=== PATIENT | female | born 1980 | race Caucasian/White ===

== ENCOUNTER 2016-09-11 17:32 | Emergency (ER) | payer BC ==
[2016-09-11 17:51] VITALS: BP 119/70
--- NOTE | 2016-09-11 18:04 | EDM.PDOC ---
ED HPI GENERAL MEDICAL PROBLEM - General Chief Complaint: ENT Problem Stated Complaint: EAR INFECTION Time Seen by Provider: 09/11/16 17:33 - History of Present Illness INITIAL COMMENTS - FREE TEXT/NARRATIVE: HISTORY AND PHYSICAL: History of present illness: The patient is a 35 or female with a history of cough nonproductive of phlegm for one week some nasal drainage and sore throat all of which have improved but now she has bilateral ear pain left greater than right the last 2 days with episodic vomiting over the last 2-3 days. She is tolerating by mouth she states she only episodically vomiting she has no diarrhea or abdominal pain. She has no chest pain or shortness of breath. She has no headache or current sinus drainage and she is mostly concerned about bilateral ear pain. 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 Patient denies any neck pain swelling or headache. Patient did not get her influenza shot this year but she does follow with Dr. Warren at [facility]. The patient states she's not using protection and is unsure of last period and would like a test Review of systems: As per history of present illness and below otherwise all systems reviewed and negative. Past medical history: As per history of present illness and as reviewed below otherwise noncontributory. Surgical history: As per history of present illness and as reviewed below otherwise noncontributory. Social history: No reported history of drug or alcohol abuse. Family history: As per history of present illness and as reviewed below otherwise noncontributory. Physical exam: General: Well-developed well-nourished female who is overweight nontoxic and speaking clearly and easily in the ED. She is not breathless or should nasal quality to voice. HEENT: Atraumatic, normocephalic, pupils reactive, negative for conjunctival pallor or scleral icterus, mucous membranes moist, throat clear, neck supple, nontender, trachea midline. There is no cervical adenopathy or nuchal rigidity. The right TM has a chronic appearing perforation in the superior aspect and there is no gross drainage or external canal swelling and the TM is not reddened. There is no mastoid tenderness bilaterally. The left TM is beefy-red in appearance and bulging but there is no fluid or debris in external canal nor is there any gross edema. Lungs: Clear to auscultation, breath sounds equal bilaterally, chest nontender. Heart: S1S2, regular rhythm and slightly tachycardic rate of my evaluation no overt murmurs Abdomen: Soft, nondistended, nontender. NABS. Genitourinary: Deferred. Rectal: Deferred. Extremities: Atraumatic, negative for cords or calf pain. Neurovascular unremarkable. Neuro: Awake, alert, oriented. Cranial nerves II through XII unremarkable. Cerebellum unremarkable. Motor and sensory unremarkable throughout. Exam nonfocal. 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: Musculoskeletal 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: None Neurological 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: None Psychiatric 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: Anxiety, Depression Endocrine/Metabolic 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: Obesity/BMI 30+ Hematologic 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: None Immunologic 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: None Oncologic (Cancer) 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: None Dermatologic 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: None - Infectious Disease History Infectious Disease 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: None - Past Surgical History Head Surgeries/Procedures: Reports: None HEENT Surgical 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: Adenoidectomy, Tonsillectomy Cardiovascular Surgical 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: None Respiratory Surgical 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: None GI Surgical 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: None Female Surgical 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: None Endocrine Surgical 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: None Neurological Surgical 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: None Musculoskeletal Surgical 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: None Oncologic Surgical 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: None Social & Family History - Family History Family Medical History: Noncontributory - Tobacco Use Smoking Status *Q: Current Some Day Smoker Years of Tobacco use: 15 Packs/Tins Daily: 0.5 Used Tobacco, but Quit: Yes - Recreational Drug Use Recreational Drug Use: No Drug Use in Last 12 Months: No ED ROS GENERAL - Review of Systems Review Of Systems: ROS reveals no pertinent complaints other than HPI. ED EXAM, GENERAL - Physical Exam Exam: See Below (See dictation) Course - Vital Signs Last Recorded V/S: Last Vital Signs Temp 36.8 C 09/11/16 17:48 Pulse 113 H 09/11/16 17:48 Resp 16 09/11/16 17:48 BP 119/70 09/11/16 17:48 Pulse Ox 96 09/11/16 17:48 - Orders/Labs/Meds Orders: Active Orders 24 hr Category Date Time Status HCG QUALITATIVE,URINE [URCHEM] Stat Lab 09/11/16 18:05 Ordered Departure - Departure Time of Disposition: 18:21 Disposition: Home, Self-Care 01 Condition: good Clinical Impression: Otitis media Qualifiers: Otitis media type: unspecified Laterality: left Chronicity: unspecified Qualified Code(s): H66.92 - Otitis media, unspecified, left ear Upper respiratory tract infection Qualifiers: URI type: unspecified viral URI Qualified Code(s): J06.9 - Acute upper respiratory infection, unspecified Referrals: Jatin Warren MD [Primary Care Provider] - Forms: ED Department Discharge Additional Instructions: The following information is given to patients seen in the emergency department who are being discharged to home. This information is to outline your options for follow-up care. We provide all patients seen in our emergency department with a follow-up referral. The need for follow-up, as well as the timing and circumstances, are variable depending upon the specifics of your emergency department visit. If you don't have a primary care physician on staff, we will provide you with a referral. We always advise you to contact your personal physician following an emergency department visit to inform them of the circumstance of the visit and for follow-up with them and/or the need for any referrals to a consulting specialist. The emergency department will also refer you to a specialist when appropriate. This referral assures that you have the opportunity for followup care with a specialist. All of these measure are taken in an effort to provide you with optimal care, which includes your followup. Under all circumstances we always encourage you to contact your private physician who remains a resource for coordinating your care. When calling for followup care, please make the office aware that this follow-up is from your recent emergency room visit. If for any reason you are refused follow-up, please contact the [facility] emergency department at and ask to speak to the emergency department charge nurse. [facility] Primary care- Internal Medicine and Family [address] [id number] [address] Warren at [facility] or one of our providers for reevaluation and further care. Please take antibiotics as directed and return to ER as needed as discussed. Please take [id number] Tylenol/ibuprofen for pain and stronger pain medication at sleep times if needed - My Orders Last 24 Hours: My Active Orders 09/11/16 18:05 HCG QUALITATIVE,URINE [URCHEM] Stat - Assessment/Plan Last 24 Hours: My Active Orders 09/11/16 18:05 HCG QUALITATIVE,URINE [URCHEM] Stat
== END 2016-09-11 18:33 | disposition home or self-care (01) ==
LOC: MW.ED 17:32
DX: J06.9 Acute upper respiratory infection, unspecified (principal); H66.92 Otitis media, unspecified, left ear; F41.8 Other specified anxiety disorders; E66.9 Obesity, unspecified; F17.210 Nicotine dependence, cigarettes, uncomplicated; Z68.30 Body mass index [BMI] 30.0-30.9, adult; Z79.899 Other long term (current) drug therapy; Z88.0 Allergy status to penicillin; Z98.890 Other specified postprocedural states
CPT/HCPCS: 81025; 99283

== ENCOUNTER 2017-04-18 20:24 | Inpatient (IN) | payer BC ==
[2017-04-18] MEDS ORDERED: Sodium Chloride 0.9% 2.5 ML Syringe FLUSH PRN (20:39)
[2017-04-18] MEDS ORDERED: Lidocaine 1% 50 ML MDV INJECT PRN (20:39)
[2017-04-18] MEDS ORDERED: Carboprost Tromethamine 250 MCG/1 ML Amp IM PRN (20:39)
[2017-04-18] MEDS ORDERED: Misoprostol 200 MCG Tab PO PRN (20:39)
[2017-04-18] MEDS ORDERED: Nalbuphine 10 MG/1 ML Vial IVPUSH PRN (20:39)
[2017-04-18] MEDS ORDERED: Methylergonovine 0.2 MG/1 ML Amp IM PRN ×2 (20:39→21:24)
[2017-04-18] MEDS ORDERED: Butorphanol 1 MG/ML SDV IVPUSH PRN (20:39)
[2017-04-18] MEDS ORDERED: Sodium Chloride 0.9% 10 ML Syringe FLUSH PRN (20:39)
[2017-04-18] MEDS ORDERED: Water For Irrigation,Sterile 1,000 ML Container IRR PRN (20:39)
[2017-04-18] MEDS ORDERED: Oxytocin/0.9 % Sodium Chloride 30 UNIT/500 ML BAG IV SCH (20:45)
[2017-04-18] MEDS ORDERED: Lactated Ringers 1,000 ML IV SCH (20:45)
--- NOTE | 2017-04-18 21:08 | PCM.SN ---
- Free Text/Narrative Note: Called by nursing for precip twins delivery. 18g PIV started to Rt AC by me, secured with tape and tegaderm. Present for both Twin A and Twin B delivery.
[2017-04-18] MEDS ORDERED: Benzocaine/Menthol 20%-0.5% Spray 78 GM Cannister TOP PRN (21:24)
[2017-04-18] MEDS ORDERED: oxyCODONE 5 MG Tab PO PRN (21:24)
[2017-04-18] MEDS ORDERED: Bisacodyl 10 MG Supp RECTAL PRN (21:24)
[2017-04-18] MEDS ORDERED: Docusate Sodium 100 MG Cap PO PRN (21:24)
[2017-04-18] MEDS ORDERED: Lanolin 100% Cream 7 GM Tube TOP PRN (21:24)
[2017-04-18] MEDS ORDERED: Witch Hazel Medicated Pads 40/Jar TOP PRN (21:24)
[2017-04-18] MEDS ORDERED: Acetaminophen 500 MG Tab PO PRN (21:24)
[2017-04-18] MEDS ORDERED: Oxytocin/0.9 % Sodium Chloride 30 UNIT/500 ML BAG ONE (21:32)
[2017-04-18] MEDS: Ibuprofen 800 MG Tab PO PRN (21:54)
--- NOTE | 2017-04-19 01:52 | OR ---
SURGEON: Jennifer Morel M.D. DATE OF PROCEDURE: 04/18/2017 PREOPERATIVE DIAGNOSIS: 36 and 6/7th week intrauterine , twin gestation, suspected cephalic breech presentation. POSTOPERATIVE DIAGNOSIS: Monochorionic diamniotic twin gestation, cephalic/cephalic presentation, labor. PROCEDURE: Vaginal delivery of monochorionic diamniotic twins, cephalic/cephalic presentation. ANESTHESIA: None. ESTIMATED BLOOD LOSS: Less than 200 mL. FINDINGS: Baby A was born cephalic, liveborn, scores 9 and 9, weighing 2240 g. Baby B was born cephalic, scores 9 and 9, weighing 1880 g. Placenta was delivered spontaneously, Schultze intact. Both cords had 3 vessels. The placenta appeared to be monochorionic diamniotic and was sent to Pathology. The cord of twin B was sent with cord clamp. COMPLICATIONS: None known. DISPOSITION: Mother and babies are in LDRP, in good condition. BRIEF HISTORY: This is a 36-year-old female. She is -0-0-2. She began to have contractions mid morning on 04/18/2017. She noted the contractions to be much more intense between 8 and 9:00 p.m. She presented to Labor and Delivery. She had spontaneous rupture of membranes upon arrival at Labor and Delivery. At that point, she was 9 cm dilated. I was notified, I came quickly to Labor and Delivery, and she was 9+ cm with the head at a +3 station when I arrived. DESCRIPTION OF PROCEDURE: With the patient in dorsal lithotomy position, the patient pushed over 2 contractions to a 5+ station, at which time A was delivered spontaneously and atraumatically over the perineum with support. The was bulb suctioned by nose and mouth. The cord was clamped x2 and cut, and the infant was handed to Dr. Rodriguez who was in attendance at delivery. The infant was a liveborn female, scores 9 and 9, weighing 2240 g. Vaginal exam revealed twin B to be coming in cephalic presentation. This was confirmed with a bedside sono as the sono tech had not yet arrived at the hospital, and she was allowed to labor over 3 contractions. At this point, she felt intense pressure. Artificial rupture of membranes was performed. Clear blood-tinged fluid was noted, and she was allowed to push, and delivered with support over the perineum, B, who was a liveborn female with scores 9 and 9, weighing 1880 g. The infant B cord was clamped x2 and cut. Cord blood had been collected for A including arterial and venous blood gases as well as routine cord blood sampling. For B, venous sampling only was obtained. Pitocin was initiated after delivery of the to assist with delivery of the placenta, which was delivered spontaneously, Schultze intact, with the appearance of a monochorionic diamniotic placenta. Upon inspection of the pelvis and perineum, there were no periurethral, vaginal sidewall, cervical, rectal, or perineal lacerations. EBL was less than 200 mL. There were no known complications. Mother and babies are in LDRP, in good condition. EPI ZACARIAS /[id number]
--- NOTE | 2017-04-19 08:28 | PCM.PNPP ---
<Stacy Carlton - Last Filed: 04/19/17 08:23> - General Info Date of Service: 04/19/17 Functional Status: Reports: Pain Controlled, Tolerating Diet, Ambulating, Urinating - Review of Systems General: Denies: Fever, Weakness, Fatigue Pulmonary: Denies: Shortness of Breath, Pleuritic Chest Pain, Cough Cardiovascular: Denies: Chest Pain, Palpitations, Dyspnea on Exertion Gastrointestinal: Denies: Abdominal Pain Genitourinary: Denies: Dysuria - General Info Date of Service: 04/19/17 - Patient Data Vital Signs - Most Recent: Last Vital Signs Temp 37.0 C 04/18/17 23:30 Pulse 68 04/18/17 23:30 Resp 18 04/18/17 23:30 BP 134/79 04/18/17 23:30 Pulse Ox 98 04/18/17 23:30 Weight - Most Recent: 83.461 kg I&O - Last 24 Hours: Intake & Output 04/18/17 04/19/17 04/19/17 22:59 06:59 14:59 Intake Total 500 500 Balance 500 500 Lab Results - Last 24 Hours: Laboratory Results - last 24 hr 04/18/17 04/18/17 04/19/17 Range/Units 20:47 20:47 05:10 WBC 17.21 H (4.0-11.0) K/uL RBC 3.80 L (4.30-5.90) M/uL Hgb 12.6 10.9 L (12.0-16.0) g/dL Hct 36.4 32.2 L (36.0-46.0) % MCV 95.8 (80.0-98.0) fL MCH 33.2 H (27.0-32.0) pg MCHC 34.6 (31.0-37.0) g/dL RDW Std Deviation 44.6 (28.0-62.0) fl RDW Coeff of Lele 13 (11.0-15.0) % Plt Count 244 (150-400) K/uL MPV 10.50 (7.40-12.00) fL Nucleated RBC % 0.0 /100WBC Nucleated RBCs # 0 K/uL Blood Type O POSITIVE Antibody Screen NEGATIVE Med Orders - Current: Current Medications Acetaminophen (Tylenol Extra Strength) 1,000 mg PO Q4H PRN PRN Reason: Pain Benzocaine/Menthol (Dermoplast Pain Relief 20%-0.5% [place]) 0 gm TOP ASDIRECTED PRN PRN Reason: Perineal Comfort Measure Last Admin: 04/18/17 21:53 Dose: 1 canister Bisacodyl (Dulcolax) 10 mg RECTAL .ONCE PRN PRN Reason: Constipation Docusate Sodium (Colace) 100 mg PO BID PRN PRN Reason: Constipation Emollient Ointment (Lansinoh Hpa) 0 gm TOP ASDIRECTED PRN PRN Reason: Sore Nipples Last Admin: 04/18/17 21:53 Dose: 1 tube Ibuprofen (Motrin) 800 mg PO Q6H PRN PRN Reason: Pain Last Admin: 04/18/17 21:54 Dose: 800 mg Methylergonovine Maleate (Methergine) 0.2 mg IM .ONCE PRN PRN Reason: Excessive Vaginal Bleeding Oxycodone HCl (Oxycodone) 5 mg PO Q2H PRN PRN Reason: Pain Witch Hailee (Tucks) 1 pad TOP ASDIRECTED PRN PRN Reason: comfort care Last Admin: 04/18/17 21:52 Dose: 1 tub Discontinued Medications Butorphanol Tartrate (Stadol) 1 mg IVPUSH Q1H PRN PRN Reason: Pain Carboprost Tromethamine (Hemabate Ds) 250 mcg IM ASDIRECTED PRN PRN Reason: Post Hemorrhage Lactated Ringer's (Ringers, Lactated) 1,000 mls @ 150 mls/hr IV ASDIRECTED [facility] Oxytocin/Sodium Chloride (Oxytocin 30 Unit/500 Ml-Ns) 30 unit in 500 mls @ 999 mls/hr IV TITRATE [facility] Last Admin: 04/18/17 21:39 Dose: 999 mls/hr Oxytocin/Sodium Chloride (Oxytocin 30 Unit/500 Ml-Ns) Confirm Administered Dose 30 unit in 500 mls @ as directed .ROUTE .[facility] Stop: 04/18/17 21:33 Lidocaine HCl (Xylocaine 1%) 50 ml INJECT .ONCE PRN PRN Reason: Laceration repair Methylergonovine Maleate (Methergine) 0.2 mg IM ASDIRECTED PRN PRN Reason: Post Hemorrhage Last Admin: 04/18/17 22:08 Dose: 0.2 mg Misoprostol (Cytotec) 200 mcg PO .ONCE PRN PRN Reason: Post Hemorrhage Nalbuphine HCl (Nubain) 10 mg IVPUSH Q1H PRN PRN Reason: Pain (severe 7-10) Sodium Chloride (Saline Flush) 10 ml FLUSH ASDIRECTED PRN PRN Reason: Keep Vein Open Sodium Chloride (Saline Flush) 2.5 ml FLUSH ASDIRECTED PRN PRN Reason: Keep Vein Open Sterile Water (Sterile Water For Irrigation) 1,000 ml IRR ASDIRECTED PRN PRN Reason: delivery Last Admin: 04/18/17 20:48 Dose: 1,000 ml - Interaction Infant Disposition, : [place] in Room with Family Infant Interaction: Holding Infant Feeding: Attempted ; Nursed Fair/Poor, Bottle Fed - Recovery Exam Fundal Tone: Firm Fundal Level: At Umbilicus Fundal Placement: Midline Lochia Amount: Small Lochia Color: Rubra/Red Perineum Description: Intact, Minimal Bruising/Swelling Episiotomy/Laceration: None Bladder Status: Voiding Urinary Elimination: Voided - Exam General: Alert, Oriented Neck: Supple Lungs: Clear to Auscultation, Normal Respiratory Effort Cardiovascular: Regular Rate, Regular Rhythm GI/Abdominal Exam: Normal Bowel Sounds, Soft, Non-Tender, No Organomegaly, No Distention, No Abnormal Bruit, No Mass, Pelvis Stable Extremities: Normal Inspection, Normal Range of Motion, Non-Tender (trace), Normal Capillary Refill, Pedal Edema - Problem List & Annotations (1) Twin gestation, monochorionic diamniotic SNOMED Code(s): 40487588 Code(s): O30.039 - TWIN , MONOCHORIONIC/DIAMNIOTIC, UNSP TRIMESTER Status: Acute Current Visit: Yes QualifierTitle: Trimester: third trimester Qualified Code(s): O30.033 - Twin , monochorionic/diamniotic, third trimester (2) Twin delivered vaginally SNOMED Code(s): 099857549 Code(s): O30.009 - TWIN , UNSP NUM PLCNTA & AMNIO SACS, UNSP TRIMESTER Status: Acute Current Visit: Yes - Problem List Review Problem List Initiated/Reviewed/Updated: Yes - Assessment Assessment:: PPD#1 from of mono/di twin gestation. Minimal pain and lochia. Work on breast feeding today. Anticipate discharge home tomorrow. - Plan Plan:: Continue routine post- cares. Aim for discharge home tomorrow. <Sonja Pantoja - Last Filed: 04/19/17 10:00> - Patient Data Vital Signs - Most Recent: Last Vital Signs Temp 37.0 C 04/18/17 23:30 Pulse 68 04/18/17 23:30 Resp 18 04/18/17 23:30 BP 134/79 04/18/17 23:30 Pulse Ox 98 04/18/17 23:30 I&O - Last 24 Hours: Intake & Output 04/18/17 04/19/17 04/19/17 22:59 06:59 14:59 Intake Total 500 500 Balance 500 500 Lab Results - Last 24 Hours: Laboratory Results - last 24 hr 04/18/17 04/18/17 04/19/17 Range/Units 20:47 20:47 05:10 WBC 17.21 H (4.0-11.0) K/uL RBC 3.80 L (4.30-5.90) M/uL Hgb 12.6 10.9 L (12.0-16.0) g/dL Hct 36.4 32.2 L (36.0-46.0) % MCV 95.8 (80.0-98.0) fL MCH 33.2 H (27.0-32.0) pg MCHC 34.6 (31.0-37.0) g/dL RDW Std Deviation 44.6 (28.0-62.0) fl RDW Coeff of Lele 13 (11.0-15.0) % Plt Count 244 (150-400) K/uL MPV 10.50 (7.40-12.00) fL Nucleated RBC % 0.0 /100WBC Nucleated RBCs # 0 K/uL Blood Type O POSITIVE Antibody Screen NEGATIVE Med Orders - Current: Current Medications Acetaminophen (Tylenol Extra Strength) 1,000 mg PO Q4H PRN PRN Reason: Pain Benzocaine/Menthol (Dermoplast Pain Relief 20%-0.5% [place]) 0 gm TOP ASDIRECTED PRN PRN Reason: Perineal Comfort Measure Last Admin: 04/18/17 21:53 Dose: 1 canister Bisacodyl (Dulcolax) 10 mg RECTAL .ONCE PRN PRN Reason: Constipation Docusate Sodium (Colace) 100 mg PO BID PRN PRN Reason: Constipation Emollient Ointment (Lansinoh Hpa) 0 gm TOP ASDIRECTED PRN PRN Reason: Sore Nipples Last Admin: 04/18/17 21:53 Dose: 1 tube Ibuprofen (Motrin) 800 mg PO Q6H PRN PRN Reason: Pain Last Admin: 04/18/17 21:54 Dose: 800 mg Methylergonovine Maleate (Methergine) 0.2 mg IM .ONCE PRN PRN Reason: Excessive Vaginal Bleeding Oxycodone HCl (Oxycodone) 5 mg PO Q2H PRN PRN Reason: Pain Witch Hailee (Tucks) 1 pad TOP ASDIRECTED PRN PRN Reason: comfort care Last Admin: 04/18/17 21:52 Dose: 1 tub Discontinued Medications Butorphanol Tartrate (Stadol) 1 mg IVPUSH Q1H PRN PRN Reason: Pain Carboprost Tromethamine (Hemabate Ds) 250 mcg IM ASDIRECTED PRN PRN Reason: Post Hemorrhage Lactated Ringer's (Ringers, Lactated) 1,000 mls @ 150 mls/hr IV ASDIRECTED [facility] Oxytocin/Sodium Chloride (Oxytocin 30 Unit/500 Ml-Ns) 30 unit in 500 mls @ 999 mls/hr IV TITRATE [facility] Last Admin: 04/18/17 21:39 Dose: 999 mls/hr Oxytocin/Sodium Chloride (Oxytocin 30 Unit/500 Ml-Ns) Confirm Administered Dose 30 unit in 500 mls @ as directed .ROUTE .[facility] Stop: 04/18/17 21:33 Lidocaine HCl (Xylocaine 1%) 50 ml INJECT .ONCE PRN PRN Reason: Laceration repair Methylergonovine Maleate (Methergine) 0.2 mg IM ASDIRECTED PRN PRN Reason: Post Hemorrhage Last Admin: 04/18/17 22:08 Dose: 0.2 mg Misoprostol (Cytotec) 200 mcg PO .ONCE PRN PRN Reason: Post Hemorrhage Nalbuphine HCl (Nubain) 10 mg IVPUSH Q1H PRN PRN Reason: Pain (severe 7-10) Sodium Chloride (Saline Flush) 10 ml FLUSH ASDIRECTED PRN PRN Reason: Keep Vein Open Sodium Chloride (Saline Flush) 2.5 ml FLUSH ASDIRECTED PRN PRN Reason: Keep Vein Open Sterile Water (Sterile Water For Irrigation) 1,000 ml IRR ASDIRECTED PRN PRN Reason: delivery Last Admin: 04/18/17 20:48 Dose: 1,000 ml - Plan Plan:: Patient seen and examined--agree with above.
[2017-04-20 04:40] VITALS: BP 127/72
--- NOTE | 2017-04-20 09:09 | PCM.PNPP ---
- General Info Date of Service: 04/20/17 Functional Status: Reports: Pain Controlled, Tolerating Diet, Ambulating, Urinating - Review of Systems General: Denies: Fever, Weakness Pulmonary: Denies: Shortness of Breath Cardiovascular: Denies: Chest Pain, Palpitations, Lightheadedness Gastrointestinal: Denies: Abdominal Pain, Nausea, Vomiting Genitourinary: Denies: Flank Pain Psychiatric: Reports: No Symptoms - General Info Date of Service: 04/20/17 - Patient Data Vital Signs - Most Recent: Last Vital Signs Temp 37.1 C 04/20/17 04:00 Pulse 98 04/20/17 04:00 Resp 15 04/20/17 04:00 BP 127/72 04/20/17 04:00 Pulse Ox 98 04/20/17 04:00 Weight - Most Recent: 83.461 kg Med Orders - Current: Current Medications Acetaminophen (Tylenol Extra Strength) 1,000 mg PO Q4H PRN PRN Reason: Pain Last Admin: 04/20/17 03:57 Dose: 1,000 mg Benzocaine/Menthol (Dermoplast Pain Relief 20%-0.5% [place]) 0 gm TOP ASDIRECTED PRN PRN Reason: Perineal Comfort Measure Last Admin: 04/18/17 21:53 Dose: 1 canister Bisacodyl (Dulcolax) 10 mg RECTAL .ONCE PRN PRN Reason: Constipation Docusate Sodium (Colace) 100 mg PO BID PRN PRN Reason: Constipation Emollient Ointment (Lansinoh Hpa) 0 gm TOP ASDIRECTED PRN PRN Reason: Sore Nipples Last Admin: 04/18/17 21:53 Dose: 1 tube Ibuprofen (Motrin) 800 mg PO Q6H PRN PRN Reason: Pain Last Admin: 04/18/17 21:54 Dose: 800 mg Methylergonovine Maleate (Methergine) 0.2 mg IM .ONCE PRN PRN Reason: Excessive Vaginal Bleeding Oxycodone HCl (Oxycodone) 5 mg PO Q2H PRN PRN Reason: Pain Witch [place] (Tucks) 1 pad TOP ASDIRECTED PRN PRN Reason: comfort care Last Admin: 04/18/17 21:52 Dose: 1 tub Discontinued Medications Butorphanol Tartrate (Stadol) 1 mg IVPUSH Q1H PRN PRN Reason: Pain Carboprost Tromethamine (Hemabate Ds) 250 mcg IM ASDIRECTED PRN PRN Reason: Post Hemorrhage Lactated Ringer's (Ringers, Lactated) 1,000 mls @ 150 mls/hr IV ASDIRECTED [facility] Oxytocin/Sodium Chloride (Oxytocin 30 Unit/500 Ml-Ns) 30 unit in 500 mls @ 999 mls/hr IV TITRATE [facility] Last Admin: 04/18/17 21:39 Dose: 999 mls/hr Oxytocin/Sodium Chloride (Oxytocin 30 Unit/500 Ml-Ns) Confirm Administered Dose 30 unit in 500 mls @ as directed .ROUTE .[facility] Stop: 04/18/17 21:33 Last Admin: 04/19/17 17:09 Dose: Not Given Lidocaine HCl (Xylocaine 1%) 50 ml INJECT .ONCE PRN PRN Reason: Laceration repair Methylergonovine Maleate (Methergine) 0.2 mg IM ASDIRECTED PRN PRN Reason: Post Hemorrhage Last Admin: 04/18/17 22:08 Dose: 0.2 mg Misoprostol (Cytotec) 200 mcg PO .ONCE PRN PRN Reason: Post Hemorrhage Nalbuphine HCl (Nubain) 10 mg IVPUSH Q1H PRN PRN Reason: Pain (severe 7-10) Sodium Chloride (Saline Flush) 10 ml FLUSH ASDIRECTED PRN PRN Reason: Keep Vein Open Sodium Chloride (Saline Flush) 2.5 ml FLUSH ASDIRECTED PRN PRN Reason: Keep Vein Open Sterile Water (Sterile Water For Irrigation) 1,000 ml IRR ASDIRECTED PRN PRN Reason: delivery Last Admin: 04/18/17 20:48 Dose: 1,000 ml - Interaction Disposition, : in Room with Family Interaction: Holding Feeding: Attempted ; Nursed Fair/Poor, Bottle Fed - Recovery Exam Fundal Tone: Firm Fundal Level: At Umbilicus Fundal Placement: Midline Lochia Amount: Scant Lochia Color: Rubra/Red Perineum Description: Intact, Minimal Bruising/Swelling Episiotomy/Laceration: None Bladder Status: Voiding Urinary Elimination: Voided - Exam General: Alert, Oriented Lungs: Normal Respiratory Effort Cardiovascular: Regular Rate, Regular Rhythm GI/Abdominal Exam: Soft, Non-Tender Extremities: Non-Tender, Pedal Edema (trace) Psy/Mental Status: Alert, Normal Affect - Problem List Review Problem List Initiated/Reviewed/Updated: Yes - My Orders Last 24 Hours: My Active Orders 04/20/17 09:07 Ready for Discharge [RC] PER UNIT ROUTINE - Assessment Assessment:: PPD#2 from of mono/di twin gestation. Minimal pain and lochia. - Plan Plan:: Doing well overall, would like to be discharged today. Infection and bleeding warnings reviewed. Discharge instructions reviewed. Follow up at [facility] 6 weeks. Discharge to home today.
[2017-04-20] MEDS: Ibuprofen 800 MG Tab PO PRN (10:06)
== END 2017-04-20 12:30 | disposition home or self-care (01) | DRG 560 ==
LOC: MW.OBCHECK 20:24 → MW.OB 20:29 → MW.OBCHECK 20:41 → OBSVTOIN 21:02
PROVIDERS: ADMIT Obstetrics & Gynecology; ATTEND Obstetrics & Gynecology
PROC: 10E0XZZ Delivery of Products of Conception, External Approach (ICD-10-PCS; principal; 2017-04-18)
PROC: 10907ZC Drainage of Amniotic Fluid, Therapeutic from Products of Conception, Via Natural or Artificial Opening (ICD-10-PCS; 2017-04-18)
DX: O60.14X1 Preterm labor third trimester with preterm delivery third trimester, fetus 1 (principal); O60.14X2 Preterm labor third trimester with preterm delivery third trimester, fetus 2; O30.033 Twin pregnancy, monochorionic/diamniotic, third trimester; O62.3 Precipitate labor; Z3A.36 36 weeks gestation of pregnancy; Z37.2 Twins, both liveborn
CPT/HCPCS: 36410; 36415; 59025; 59409; 85014; 85018; 85027; 86850; 86900; 86901; 88307; A9270-GY; J2210; J2590

== ENCOUNTER 2018-08-15 10:24 | Inpatient (IN) | payer MEDICAID ==
[2018-08-15] MEDS ORDERED: Carboprost Tromethamine 250 MCG/1 ML Amp IM PRN (15:36)
[2018-08-15] MEDS ORDERED: Misoprostol 200 MCG Tab PO PRN (15:36)
[2018-08-15] MEDS ORDERED: Water For Irrigation,Sterile 1,000 ML Container IRR PRN (15:36)
[2018-08-15] MEDS ORDERED: Methylergonovine 0.2 MG/1 ML Amp IM PRN (15:36)
[2018-08-15] MEDS ORDERED: Nalbuphine 10 MG/1 ML Vial IVPUSH PRN (15:36)
[2018-08-15] MEDS ORDERED: Lidocaine 1% 50 ML MDV INJECT PRN (15:36)
[2018-08-15] MEDS ORDERED: Tranexamic Acid 1,000 MG in Sodium Chloride 0.9% 100 ML IV PRN (15:36)
[2018-08-15] MEDS ORDERED: Butorphanol 1 MG/ML SDV IVPUSH PRN (15:36)
[2018-08-15] MEDS ORDERED: Lactated Ringers 1,000 ML IV SCH ×2 (15:45→17:15)
[2018-08-15] MEDS ORDERED: Oxytocin/0.9 % Sodium Chloride 30 UNIT/500 ML BAG IV SCH (15:45)
[2018-08-15] MEDS ORDERED: Lanolin 100% Cream 7 GM Tube TOP PRN (17:15)
[2018-08-15] MEDS ORDERED: Ondansetron 4 MG/2 ML SDV IVPUSH PRN (17:15)
[2018-08-15] MEDS ORDERED: diphenhydrAMINE 50 MG/ML SDV IVPUSH PRN (17:15)
[2018-08-15] MEDS ORDERED: Ketorolac 30 MG/ML SDV IVPUSH SCH (17:15)
[2018-08-15] MEDS ORDERED: Acetaminophen/oxyCODONE 325-5 MG Tab PO PRN ×2 (17:15)
[2018-08-15] MEDS ORDERED: Bisacodyl 10 MG Supp RECTAL PRN (17:15)
--- NOTE | 2018-08-15 18:06 | OR ---
SURGEON: Bakari Islas MD DATE OF PROCEDURE: 08/15/2018 Ms. Husain is a 38-year-old patient, she is para 3-0-0-3. She is followed in our clinic primarily by our nurse corsetier. She is admitted in active labor early this morning. At the time of admission, she was 4 cm, 80% vertex with bulging bag of water with regular contraction as the patient had artificial rupture of the membrane, which was clear fluid. The patient continued to contract without any aid of any Pitocin or any stimulation. She went to 7, 9, and then complete. When she was able to accomplish normal spontaneous vaginal delivery of a female fetus, cried immediately. There was one nuchal cord and later on, scores reported to be 8 and 9. The weight is not available. The placenta delivered spontaneous, complete, and intact without any problem. There was no perineal or labial laceration. Estimated blood loss was 250 to 300 mL. heart rate was category 1 through the entire process of labor. There was no complication in this labor and delivery process. STEPHANIE / DEANN /[id number]
[2018-08-15] MEDS: Ibuprofen 800 MG Tab PO PRN (19:10)
[2018-08-16] MEDS ORDERED: Acetaminophen 500 MG Tab ONE (00:26)
--- NOTE | 2018-08-16 09:18 | PCM.LDHP ---
L&D History of Present Illness - General Date of Service: 08/16/18 Admit Problem/Dx: Patient Status Order with Admit Dx/Problem 08/15/18 10:50 Patient Status [ADT] Routine 08/15/18 17:15 Patient Status [ADT] Routine Admission Diagnosis/Problem Admission Diagnosis/Problem Source of Information: Patient History Limitations: Reports: No Limitations - History of Present Illness Pain Score: 2 Improves with: Reports: None Worsens with: Reports: None Associated Symptoms: Reports: N - Related Data Allergies/Adverse Reactions: Allergies Allergy/AdvReac Type Severity Reaction Status Date / Time Penicillins Allergy Rash Verified 04/18/17 20:38 Home Medications: Home Meds Vit Calc,Iron,Folic [ Vitamins] 1 tab PO DAILY 04/19/17 [ History] Past Medical History HEENT 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: Other (See Below) Other HEENT History: has upper dental bridge Cardiovascular 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: None Respiratory 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: None Gastrointestinal 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: None Genitourinary 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: None [employer] 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: Musculoskeletal 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: None Neurological 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: None Psychiatric 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: Anxiety, Depression Endocrine/Metabolic 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: Obesity/BMI 30+ Hematologic 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: None Immunologic 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: None Oncologic (Cancer) 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: None Dermatologic 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: None - Infectious Disease History Infectious Disease 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: Chicken Pox - Past Surgical History HEENT Surgical 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: Adenoidectomy, Tonsillectomy Social & Family History - Family History Family Medical History: Noncontributory Respiratory: Reports: COPD, Other (See Below) Other Respiratory Family Hisory: emphysema : Reports: Other (See Below) Other Family History: kidney disease OBGYN: Reports: Endocrine/Metabolic: Reports: Diabetes, type II Oncologic: Reports: Cervix, Lung - Tobacco Use Smoking Status *Q: Former Smoker Used Tobacco, but Quit: Yes Month/Year Tobacco Last Used: 2017 - Caffeine Use Caffeine Use: Reports: Coffee, Energy Drinks, Soda - Recreational Drug Use Recreational Drug Use: No H&P Review of Systems - Review of Systems: Review Of Systems: See Below General: Reports: No Symptoms HEENT: Reports: No Symptoms Pulmonary: Reports: No Symptoms Cardiovascular: Reports: No Symptoms Gastrointestinal: Reports: No Symptoms Genitourinary: Reports: No Symptoms Musculoskeletal: Reports: No Symptoms Skin: Reports: No Symptoms Psychiatric: Reports: No Symptoms Neurological: Reports: No Symptoms Hematologic/Lymphatic: Reports: No Symptoms Immunologic: Reports: No Symptoms L&D Exam - Exam Exam: See Below - Vital Signs Vital Signs: Last Vital Signs Temp 36.7 C 08/15/18 19:30 Pulse 90 08/15/18 19:30 Resp 16 08/15/18 19:30 BP 109/62 08/15/18 19:30 Pulse Ox 99 08/15/18 19:30 Weight: 80.286 kg - OB Specific Fundal Height In cm: 37 Contraction Intensity: Moderate Movement: Active Heart Tones: Present Presentation: Vertex - Calderon Score Calderon Score Cervix Position: Anterior Calderon Score Consistency: Soft Calderon Score Effacement: >80% Calderon Score Dilation: 3-4 cm Calderon Score 's Station: -2 Calderon Score Total: 10 - Exam General: Alert, Oriented HEENT: PERRLA, Conjunctiva Clear, EACs Clear, EOMI, Hearing Intact, Mucosa Moist & [place], Nares Patent, Normal Nasal Septum, Posterior Pharynx Clear, TMs Clear Neck: Supple, Trachea Midline Lungs: Clear to Auscultation, Normal Respiratory Effort Cardiovascular: Regular Rate, Regular Rhythm GI/Abdominal Exam: Normal Bowel Sounds, Soft, Non-Tender, No Organomegaly, No Distention, No Abnormal Bruit, No Mass, Pelvis Stable Rectal Exam: Normal Exam, Normal Rectal Tone Genitourinary: Normal external exam, Normal bimanual exam, Normal speculum exam Back Exam: Normal Inspection, Full Range of Motion Extremities: Normal Inspection, Normal Range of Motion, Non-Tender, No Pedal Edema, Normal Capillary Refill Skin: Warm, Dry, Intact Neurological: Cranial Nerves Intact, Reflexes Equal Bilateral Psychiatric: Alert, Normal Affect, Normal Mood - Patient Data Lab Results Last 24 hrs: Laboratory Results - last 24 hr 08/15/18 08/15/18 08/16/18 Range/Units 11:09 11:09 04:50 WBC 16.70 H (4.0-11.0) K/uL RBC 3.85 L (4.30-5.90) M/uL Hgb 12.5 10.4 L (12.0-16.0) g/dL Hct 36.7 31.0 L (36.0-46.0) % MCV 95.3 (80.0-98.0) fL MCH 32.5 H (27.0-32.0) pg MCHC 34.1 (31.0-37.0) g/dL RDW Std Deviation 44.4 (28.0-62.0) fl RDW Coeff of Lele 13 (11.0-15.0) % Plt Count 273 (150-400) K/uL MPV 10.20 (7.40-12.00) fL Nucleated RBC % 0.0 /100WBC Nucleated RBCs # 0 K/uL Blood Type O POSITIVE Antibody Screen NEGATIVE Result Diagrams: 08/16/18 04:50 Problem List Initiated/Reviewed/Updated: Yes Orders Last 24hrs: Active Orders 24 hr Category Date Time Status Patient Status [ADT] Routine ADT 08/15/18 17:15 Active Communication Order [RC] PER UNIT ROUTINE Care 08/15/18 17:15 Active Non Stress Test [RC] PER UNIT ROUTINE Care 08/15/18 10:34 Inactive May Shower [RC] ASDIRECTED Care 08/15/18 10:50 Active May Shower [RC] ASDIRECTED Care 08/15/18 17:15 Active RT Incentive Spirometry [RC] Q2HWA Care 08/15/18 17:15 Active Up ad Daisy [RC] ASDIRECTED Care 08/15/18 10:34 Inactive Up ad Daisy [RC] ASDIRECTED Care 08/15/18 10:50 Active Vaginal Exam [RC] Click to Edit Care 08/15/18 10:34 Inactive Vital Signs [RC] PER UNIT ROUTINE Care 08/15/18 10:34 Inactive Vital Signs [RC] PER UNIT ROUTINE Care 08/15/18 10:50 Active Vital Signs [RC] PER UNIT ROUTINE Care 08/15/18 17:15 Active Regular Diet [DIET] Diet 08/15/18 Dinner Active Acetaminophen/oxyCODONE [Percocet 325-5 MG] Med 08/15/18 17:15 Active 1 tab PO Q4H PRN Acetaminophen/oxyCODONE [Percocet 325-5 MG] Med 08/15/18 17:15 Active 2 tab PO Q4H PRN Bisacodyl [Dulcolax] Med 08/15/18 17:15 Active 10 mg RECTAL ONETIME PRN Butorphanol [Stadol] Med 08/15/18 15:36 Active 1 mg IVPUSH Q1H PRN Carboprost Tromethamine [Hemabate DS] Med 08/15/18 15:36 Active 250 mcg IM ASDIRECTED PRN Docusate Sodium [Colace] Med 08/15/18 21:00 Active 100 mg PO BID Ibuprofen [Motrin] Med 08/15/18 17:15 Active 800 mg PO Q8H PRN Ketorolac [Toradol] Med 08/15/18 17:15 Active 30 mg IVPUSH Q6H Lactated Ringers [Ringers, Lactated] 1,000 ml Med 08/15/18 15:45 Active IV ASDIRECTED Lactated Ringers [Ringers, Lactated] 1,000 ml Med 08/15/18 17:15 Active IV ASDIRECTED Lanolin [Lansinoh HPA] Med 08/15/18 17:15 Active See Dose Instructions TOP ASDIRECTED PRN Lidocaine 1% [Xylocaine 1%] Med 08/15/18 15:36 Active 50 ml INJECT ONETIME PRN Methylergonovine [Methergine] Med 08/15/18 15:36 Active 0.2 mg IM ASDIRECTED PRN Nalbuphine [Nubain] Med 08/15/18 15:36 Active 10 mg IVPUSH Q1H PRN Ondansetron [Zofran] Med 08/15/18 17:15 Active 4 mg IVPUSH Q4H PRN Oxytocin/0.9 % Sodium Chloride [Oxytocin 30 Unit/500 ML Med 08/15/18 15:45 Active -NS] 30 unit in 500 ml IV TITRATE Tranexamic Acid [Cyklokapron] 1,000 mg Med 08/15/18 15:36 Active Sodium Chloride 0.9% [Normal Saline] 100 ml IV ONETIME Water For Irrigation,Sterile [Sterile Water for Med 08/15/18 15:36 Active Irrigation] 1,000 ml IRR ASDIRECTED PRN diphenhydrAMINE [Benadryl] Med 08/15/18 17:15 Active 25 mg IVPUSH Q6H PRN miSOPROStol [Cytotec] Med 08/15/18 15:36 Active 200 mcg PO ONETIME PRN Assess Lochia [WOMSER] Per Unit Routine Oth 08/15/18 17:15 Ordered Assess Uterine Involution [WOMSER] Per Unit Routine Ot 08/15/18 17:15 Ordered Breast Pump [WOMSER] Per Unit Routine Ot 08/15/18 17:15 Ordered Scalp Electrode [WOMSER] Per Unit Routine Ot 08/15/18 10:50 Ordered Peripheral IV Discontinue [OM.PC] Routine Ot 08/15/18 17:15 Ordered Peripheral IV Insertion Adult [OM.PC] Routine Ot 08/15/18 10:50 Ordered Sequential Compression Device [OM.PC] Per Unit Routine Ot 08/15/18 17:15 Ordered Resuscitation Status Routine Resus Stat 08/15/18 10:50 Ordered Medication Orders Bisacodyl (Dulcolax) 10 mg RECTAL ONETIME PRN PRN Reason: Constipation Butorphanol Tartrate (Stadol) 1 mg IVPUSH Q1H PRN PRN Reason: Pain Carboprost Tromethamine (Hemabate Ds) 250 mcg IM ASDIRECTED PRN PRN Reason: Post Hemorrhage Diphenhydramine HCl (Benadryl) 25 mg IVPUSH Q6H PRN PRN Reason: Itching or Nausea Docusate Sodium (Colace) 100 mg PO BID [facility] Emollient Ointment (Lansinoh Hpa) 0 gm TOP ASDIRECTED PRN PRN Reason: Sore Nipples Lactated Ringer's (Ringers, Lactated) 1,000 mls @ 150 mls/hr IV ASDIRECTED [facility] Last Admin: 08/15/18 13:41 Dose: 150 mls/hr Oxytocin/Sodium Chloride (Oxytocin 30 Unit/500 Ml-Ns) 30 unit in 500 mls @ 999 mls/hr IV TITRATE [facility] Last Admin: 08/15/18 17:07 Dose: 999 mls/hr Tranexamic Acid 1,000 mg/ (Sodium Chloride) 110 mls @ 660 mls/hr IV ONETIME PRN PRN Reason: Bleeding Lactated Ringer's (Ringers, Lactated) 1,000 mls @ 125 mls/hr IV ASDIRECTED [facility] Ibuprofen (Motrin) 800 mg PO Q8H PRN PRN Reason: mild pain or fever Last Admin: 08/15/18 19:10 Dose: 800 mg Ketorolac Tromethamine (Toradol) 30 mg IVPUSH Q6H [facility] Stop: 08/16/18 17:16 Lidocaine HCl (Xylocaine 1%) 50 ml INJECT ONETIME PRN PRN Reason: Laceration repair Methylergonovine Maleate (Methergine) 0.2 mg IM ASDIRECTED PRN PRN Reason: Post Hemorrhage Misoprostol (Cytotec) 200 mcg PO ONETIME PRN PRN Reason: Post Hemorrhage Nalbuphine HCl (Nubain) 10 mg IVPUSH Q1H PRN PRN Reason: Pain (severe 7-10) Ondansetron HCl (Zofran) 4 mg IVPUSH Q4H PRN PRN Reason: Nausea/Vomiting Oxycodone/Acetaminophen (Percocet 325-5 Mg) 1 tab PO Q4H PRN PRN Reason: Pain (moderate 4-6) Oxycodone/Acetaminophen (Percocet 325-5 Mg) 2 tab PO Q4H PRN PRN Reason: Pain (moderate 4-6) Sterile Water (Sterile Water For Irrigation) 1,000 ml IRR ASDIRECTED PRN PRN Reason: delivery Assessment/Plan Comment:: Term multiple patient admitted in active labor anticipating normal spontaneous vaginal delivery
--- NOTE | 2018-08-16 09:19 | PCM.PNPP ---
- General Info Date of Service: 08/16/18 Functional Status: Reports: Pain Controlled - Review of Systems General: Reports: No Symptoms HEENT: Reports: No Symptoms Pulmonary: Reports: No Symptoms Cardiovascular: Reports: No Symptoms Gastrointestinal: Reports: No Symptoms Genitourinary: Reports: No Symptoms Musculoskeletal: Reports: No Symptoms Skin: Reports: No Symptoms Neurological: Reports: No Symptoms Psychiatric: Reports: No Symptoms - General Info Date of Service: 08/16/18 - Patient Data Vital Signs - Most Recent: Last Vital Signs Temp 36.7 C 08/15/18 19:30 Pulse 90 08/15/18 19:30 Resp 16 08/15/18 19:30 BP 109/62 08/15/18 19:30 Pulse Ox 99 08/15/18 19:30 Weight - Most Recent: 80.286 kg Lab Results - Last 24 Hours: Laboratory Results - last 24 hr 08/15/18 08/15/18 08/16/18 Range/Units 11:09 11:09 04:50 WBC 16.70 H (4.0-11.0) K/uL RBC 3.85 L (4.30-5.90) M/uL Hgb 12.5 10.4 L (12.0-16.0) g/dL Hct 36.7 31.0 L (36.0-46.0) % MCV 95.3 (80.0-98.0) fL MCH 32.5 H (27.0-32.0) pg MCHC 34.1 (31.0-37.0) g/dL RDW Std Deviation 44.4 (28.0-62.0) fl RDW Coeff of Lele 13 (11.0-15.0) % Plt Count 273 (150-400) K/uL MPV 10.20 (7.40-12.00) fL Nucleated RBC % 0.0 /100WBC Nucleated RBCs # 0 K/uL Blood Type O POSITIVE Antibody Screen NEGATIVE Med Orders - Current: Current Medications Bisacodyl (Dulcolax) 10 mg RECTAL ONETIME PRN PRN Reason: Constipation Butorphanol Tartrate (Stadol) 1 mg IVPUSH Q1H PRN PRN Reason: Pain Carboprost Tromethamine (Hemabate Ds) 250 mcg IM ASDIRECTED PRN PRN Reason: Post Hemorrhage Diphenhydramine HCl (Benadryl) 25 mg IVPUSH Q6H PRN PRN Reason: Itching or Nausea Docusate Sodium (Colace) 100 mg PO BID [facility] Emollient Ointment (Lansinoh Hpa) 0 gm TOP ASDIRECTED PRN PRN Reason: Sore Nipples Lactated Ringer's (Ringers, Lactated) 1,000 mls @ 150 mls/hr IV ASDIRECTED [facility] Last Admin: 08/15/18 13:41 Dose: 150 mls/hr Oxytocin/Sodium Chloride (Oxytocin 30 Unit/500 Ml-Ns) 30 unit in 500 mls @ 999 mls/hr IV TITRATE [facility] Last Admin: 08/15/18 17:07 Dose: 999 mls/hr Tranexamic Acid 1,000 mg/ (Sodium Chloride) 110 mls @ 660 mls/hr IV ONETIME PRN PRN Reason: Bleeding Lactated Ringer's (Ringers, Lactated) 1,000 mls @ 125 mls/hr IV ASDIRECTED [facility] Ibuprofen (Motrin) 800 mg PO Q8H PRN PRN Reason: mild pain or fever Last Admin: 08/15/18 19:10 Dose: 800 mg Ketorolac Tromethamine (Toradol) 30 mg IVPUSH Q6H [facility] Stop: 08/16/18 17:16 Lidocaine HCl (Xylocaine 1%) 50 ml INJECT ONETIME PRN PRN Reason: Laceration repair Methylergonovine Maleate (Methergine) 0.2 mg IM ASDIRECTED PRN PRN Reason: Post Hemorrhage Misoprostol (Cytotec) 200 mcg PO ONETIME PRN PRN Reason: Post Hemorrhage Nalbuphine HCl (Nubain) 10 mg IVPUSH Q1H PRN PRN Reason: Pain (severe 7-10) Ondansetron HCl (Zofran) 4 mg IVPUSH Q4H PRN PRN Reason: Nausea/Vomiting Oxycodone/Acetaminophen (Percocet 325-5 Mg) 1 tab PO Q4H PRN PRN Reason: Pain (moderate 4-6) Oxycodone/Acetaminophen (Percocet 325-5 Mg) 2 tab PO Q4H PRN PRN Reason: Pain (moderate 4-6) Sterile Water (Sterile Water For Irrigation) 1,000 ml IRR ASDIRECTED PRN PRN Reason: delivery Discontinued Medications Acetaminophen (Tylenol Extra Strength) Confirm Administered Dose 1,000 mg .ROUTE .STK-MED ONE Stop: 08/16/18 00:27 - Interaction Disposition, : in Room with Family Interaction: Holding Infant Feeding: Attempted ; Nursed Fair/Poor Support Person: Significant Other - Exam General: Alert, Oriented HEENT: Pupils Equal Neck: Supple Lungs: Clear to Auscultation, Normal Respiratory Effort Cardiovascular: Regular Rate, Regular Rhythm GI/Abdominal Exam: Normal Bowel Sounds, Soft, Non-Tender, No Organomegaly, No Distention, No Abnormal Bruit, No Mass, Pelvis Stable Extremities: Normal Inspection, Normal Range of Motion, Non-Tender, No Pedal Edema, Normal Capillary Refill Skin: Warm, Dry, Intact Wound/Incisions: Healing Well Neurological: No New Focal Deficit Psy/Mental Status: Alert, Normal Affect, Normal Mood - Problem List Review Problem List Initiated/Reviewed/Updated: Yes - My Orders Last 24 Hours: My Active Orders 08/15/18 10:34 Non Stress Test [RC] PER UNIT ROUTINE Up ad Daisy [RC] ASDIRECTED Vaginal Exam [RC] Click to Edit Vital Signs [RC] PER UNIT ROUTINE 08/15/18 10:50 May Shower [RC] ASDIRECTED Up ad Daisy [RC] ASDIRECTED Vital Signs [RC] PER UNIT ROUTINE Scalp Electrode [WOMSER] Per Unit Routine Peripheral IV Insertion Adult [OM.PC] Routine Resuscitation Status Routine 08/15/18 15:36 Butorphanol [Stadol] 1 mg IVPUSH Q1H PRN Carboprost Tromethamine [Hemabate DS] 250 mcg IM ASDIRECTED PRN Lidocaine 1% [Xylocaine 1%] 50 ml INJECT ONETIME PRN Methylergonovine [Methergine] 0.2 mg IM ASDIRECTED PRN Nalbuphine [Nubain] 10 mg IVPUSH Q1H PRN Tranexamic Acid [Cyklokapron] 1,000 mg Sodium Chloride 0.9% [Normal Saline] 100 ml IV ONETIME Water For Irrigation,Sterile [Sterile Water for Irrigation] 1,000 ml IRR ASDIRECTED PRN miSOPROStol [Cytotec] 200 mcg PO ONETIME PRN 08/15/18 15:45 Lactated Ringers [Ringers, Lactated] 1,000 ml IV ASDIRECTED Oxytocin/0.9 % Sodium Chloride [Oxytocin 30 Unit/500 ML-NS] 30 unit in 500 ml IV TITRATE 08/15/18 17:15 Patient Status [ADT] Routine Communication Order [RC] PER UNIT ROUTINE May Shower [RC] ASDIRECTED RT Incentive Spirometry [RC] Q2HWA Vital Signs [RC] PER UNIT ROUTINE Acetaminophen/oxyCODONE [Percocet 325-5 MG] 1 tab PO Q4H PRN Acetaminophen/oxyCODONE [Percocet 325-5 MG] 2 tab PO Q4H PRN Bisacodyl [Dulcolax] 10 mg RECTAL ONETIME PRN Ibuprofen [Motrin] 800 mg PO Q8H PRN Ketorolac [Toradol] 30 mg IVPUSH Q6H Lactated Ringers [Ringers, Lactated] 1,000 ml IV ASDIRECTED Lanolin [Lansinoh HPA] See Dose Instructions TOP ASDIRECTED PRN Ondansetron [Zofran] 4 mg IVPUSH Q4H PRN diphenhydrAMINE [Benadryl] 25 mg IVPUSH Q6H PRN Assess Lochia [WOMSER] Per Unit Routine Assess Uterine Involution [WOMSER] Per Unit Routine Breast Pump [WOMSER] Per Unit Routine Peripheral IV Discontinue [OM.PC] Routine Sequential Compression Device [OM.PC] Per Unit Routine 08/15/18 21:00 Docusate Sodium [Colace] 100 mg PO BID 08/15/18 Dinner Regular Diet [DIET] - Plan Plan:: Term multiple patient admitted in active labor anticipating normal spontaneous vaginal delivery
--- NOTE | 2018-08-16 09:20 | PCM.DCSUM1 ---
Discharge Summary - Hospital Course Diagnosis: Stroke: No - Discharge Data Discharge Date: 08/16/18 Discharge Disposition: Home, Self-Care 01 Condition: Good - Patient Instructions Diet: Usual Diet as Tolerated Activity: As Tolerated Driving: Do Not Drive Showering/Bathing: October Shower - Discharge Plan Home Medications: Home Meds Vit Calc,Iron,Folic [ Vitamins] 1 tab PO DAILY 04/19/17 [ History] Referrals: [facility] [Outside] Uma Srivastava CNM [Primary Care Provider] - 09/27/18 8:00 am - Discharge Summary/Plan Comment DC Time >30 min.: Yes - General Info Date of Service: 08/16/18 Functional Status: Reports: Pain Controlled - Review of Systems General: Reports: No Symptoms HEENT: Reports: No Symptoms Pulmonary: Reports: No Symptoms Cardiovascular: Reports: No Symptoms Gastrointestinal: Reports: No Symptoms Genitourinary: Reports: No Symptoms Musculoskeletal: Reports: No Symptoms Skin: Reports: No Symptoms Neurological: Reports: No Symptoms Psychiatric: Reports: No Symptoms - Patient Data Vitals - Most Recent: Last Vital Signs Temp 36.7 C 08/15/18 19:30 Pulse 90 08/15/18 19:30 Resp 16 08/15/18 19:30 BP 109/62 08/15/18 19:30 Pulse Ox 99 08/15/18 19:30 Weight - Most Recent: 80.286 kg Lab Results - Last 24 hrs: Laboratory Results - last 24 hr 08/15/18 08/15/18 08/16/18 Range/Units 11:09 11:09 04:50 WBC 16.70 H (4.0-11.0) K/uL RBC 3.85 L (4.30-5.90) M/uL Hgb 12.5 10.4 L (12.0-16.0) g/dL Hct 36.7 31.0 L (36.0-46.0) % MCV 95.3 (80.0-98.0) fL MCH 32.5 H (27.0-32.0) pg MCHC 34.1 (31.0-37.0) g/dL RDW Std Deviation 44.4 (28.0-62.0) fl RDW Coeff of Lele 13 (11.0-15.0) % Plt Count 273 (150-400) K/uL MPV 10.20 (7.40-12.00) fL Nucleated RBC % 0.0 /100WBC Nucleated RBCs # 0 K/uL Blood Type O POSITIVE Antibody Screen NEGATIVE Med Orders - Current: Current Medications Bisacodyl (Dulcolax) 10 mg RECTAL ONETIME PRN PRN Reason: Constipation Butorphanol Tartrate (Stadol) 1 mg IVPUSH Q1H PRN PRN Reason: Pain Carboprost Tromethamine (Hemabate Ds) 250 mcg IM ASDIRECTED PRN PRN Reason: Post Hemorrhage Diphenhydramine HCl (Benadryl) 25 mg IVPUSH Q6H PRN PRN Reason: Itching or Nausea Docusate Sodium (Colace) 100 mg PO BID [facility] Emollient Ointment (Lansinoh Hpa) 0 gm TOP ASDIRECTED PRN PRN Reason: Sore Nipples Lactated Ringer's (Ringers, Lactated) 1,000 mls @ 150 mls/hr IV ASDIRECTED [facility] Last Admin: 08/15/18 13:41 Dose: 150 mls/hr Oxytocin/Sodium Chloride (Oxytocin 30 Unit/500 Ml-Ns) 30 unit in 500 mls @ 999 mls/hr IV TITRATE [facility] Last Admin: 08/15/18 17:07 Dose: 999 mls/hr Tranexamic Acid 1,000 mg/ (Sodium Chloride) 110 mls @ 660 mls/hr IV ONETIME PRN PRN Reason: Bleeding Lactated Ringer's (Ringers, Lactated) 1,000 mls @ 125 mls/hr IV ASDIRECTED [facility] Ibuprofen (Motrin) 800 mg PO Q8H PRN PRN Reason: mild pain or fever Last Admin: 08/15/18 19:10 Dose: 800 mg Ketorolac Tromethamine (Toradol) 30 mg IVPUSH Q6H [facility] Stop: 08/16/18 17:16 Lidocaine HCl (Xylocaine 1%) 50 ml INJECT ONETIME PRN PRN Reason: Laceration repair Methylergonovine Maleate (Methergine) 0.2 mg IM ASDIRECTED PRN PRN Reason: Post Hemorrhage Misoprostol (Cytotec) 200 mcg PO ONETIME PRN PRN Reason: Post Hemorrhage Nalbuphine HCl (Nubain) 10 mg IVPUSH Q1H PRN PRN Reason: Pain (severe 7-10) Ondansetron HCl (Zofran) 4 mg IVPUSH Q4H PRN PRN Reason: Nausea/Vomiting Oxycodone/Acetaminophen (Percocet 325-5 Mg) 1 tab PO Q4H PRN PRN Reason: Pain (moderate 4-6) Oxycodone/Acetaminophen (Percocet 325-5 Mg) 2 tab PO Q4H PRN PRN Reason: Pain (moderate 4-6) Sterile Water (Sterile Water For Irrigation) 1,000 ml IRR ASDIRECTED PRN PRN Reason: delivery Discontinued Medications Acetaminophen (Tylenol Extra Strength) Confirm Administered Dose 1,000 mg .ROUTE [facility] ONE Stop: 08/16/18 00:27 - Exam General: Reports: Alert, Oriented HEENT: Reports: Pupils Equal, Pupils Reactive, EOMI, Mucous Membr. Moist/[place] Neck: Reports: Supple Lungs: Reports: Clear to Auscultation, Normal Respiratory Effort Cardiovascular: Reports: Regular Rate, Regular Rhythm GI/Abdominal Exam: Normal Bowel Sounds, Soft, Non-Tender, No Organomegaly, No Distention, No Abnormal Bruit, No Mass, Pelvis Stable (Female) Exam: Normal External Exam, Normal Speculum Exam, Normal Bimanual Exam Rectal (Female) Exam: Normal Exam, Normal Rectal Tone Back Exam: Reports: Normal Inspection, Full Range of Motion Extremities: Normal Inspection, Normal Range of Motion, Non-Tender, No Pedal Edema, Normal Capillary Refill Skin: Reports: Warm, Dry, Intact Wound/Incisions: Reports: Healing Well Neurological: Reports: No New Focal Deficit Psy/Mental Status: Reports: Alert, Normal Affect, Normal Mood
[2018-08-16] MEDS: Ibuprofen 800 MG Tab PO PRN (14:58)
[2018-08-16] MEDS: Docusate Sodium 100 MG Cap PO SCH (15:07)
[2018-08-16 17:15] VITALS: BP 117/59
== END 2018-08-16 18:58 | disposition home or self-care (01) | DRG 807 ==
LOC: MW.OBCHECK 10:24 → MW.OB 10:26 → MW.OBCHECK 10:45 → MW.OB 10:50 → OBSVTOIN 17:06 → MW.OB 20:00
PROVIDERS: ADMIT Obstetrics & Gynecology; ATTEND Obstetrics & Gynecology
PROC: 10E0XZZ Delivery of Products of Conception, External Approach (ICD-10-PCS; principal; 2018-08-15)
PROC: 10907ZC Drainage of Amniotic Fluid, Therapeutic from Products of Conception, Via Natural or Artificial Opening (ICD-10-PCS; principal; 2018-08-15)
DX: O99.214 Obesity complicating childbirth (principal); Z37.0 Single live birth; O99.344 Other mental disorders complicating childbirth; E66.9 Obesity, unspecified; O69.81X0 Labor and delivery complicated by cord around neck, without compression, not applicable or unspecified; F41.9 Anxiety disorder, unspecified; F32.9 Major depressive disorder, single episode, unspecified; Z87.891 Personal history of nicotine dependence; Z88.0 Allergy status to penicillin; Z3A.38 38 weeks gestation of pregnancy
CPT/HCPCS: 36415; 59025; 59409; 85014; 85018; 85027; 86850; 86900; 86901; A9270-GY; J2590; J7120

== ENCOUNTER 2019-09-20 08:54 | Emergency (ER) | payer SELFPAY ==
[2019-09-20] MEDS ORDERED: Morphine 4 MG/ML Syringe IVPUSH ONE (09:01)
[2019-09-20] MEDS ORDERED: Ondansetron 4 MG/2 ML SDV IVPUSH ONE (09:02)
[2019-09-20] MEDS ORDERED: Oxytocin 10 Units/1 ML SDV IM ONE (09:34)
[2019-09-20] MEDS ORDERED: Methylergonovine 0.2 MG/1 ML Amp IM STA (09:45)
[2019-09-20 10:17] LABS: BLOOD UREA NITROGEN,BUN 8 mg/dL (7.0-18.0); CARBON DIOXIDE,CO2 26.5 mmol/L (21.0-32.0); CHLORIDE,CL 106 mmol/L (98-107); GLUCOSE RANDOM 108 mg/dL (74-106); POTASSIUM,K 4.2 mmol/L (3.5-5.1); SODIUM,NA 141 mmol/L (136-145)
--- NOTE | 2019-09-20 10:28 | EDM.PDOC ---
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 Patient was approximately 10 to 11 weeks and had a miscarriage diagnosed several days ago. Patient says she started bleeding this morning and has been passing large amounts of blood. Patient states she is 4 pads and then was sitting in the bathtub with increased bleeding. EMS said that the toilet was full of blood as well as the bathtub. Patient feels associated lightheadedness and fatigue. Patient denies any nausea vomiting. Patient reports some associated abdominal cramping. Nothing makes symptoms better or worse. EMS provided the patient with 1 g of TXA in the field. Patient's blood pressure per EMS was 90/ 60. Pmhx: No prior miscarriages Pshx: None Family Hx: noncontributory Smoking history? no Etoh use? none Drug use? none In addition to that documented in the HPI above, the additional ROS was obtained : Constitutional: Denies fevers or chills Eyes: Denies vision changes ENMT: Denies sore throat CV: Denies chest pain Resp: Denies SOB GI: Denies vomiting or diarrhea : Denies painful urination MSK: Denies recent trauma Skin: Denies new rashes Neuro: Denies new numbness or tingling or weakness Endocrine: Denies unexpected weight loss Heme: Denies bleeding disorders I have reviewed the triage vital signs Const: Patient is pale in appearance but and not in distress Eyes: PERRL, no conjunctival injection HENT: NCAT, Neck supple without meningismus CV: RRR, Warm, well-perfused extremities RESP: CTAB, Unlabored respiratory effort GI: soft, non-tender, non-distended, no masses Pelvic (MARIN Cee present): Patient demonstrates active vaginal bleeding no masses or clots noted. MSK: No gross deformities appreciated Skin: Warm, dry. No rashes Neuro: Alert, venue coordinator II-XII grossly intact. Sensation and motor function of extremities grossly intact. Psych: Appropriate mood and affect Assessment and plan: Patient is a 39-year-old female presenting with vaginal bleeding to the ER. Patient was initially hypotensive likely secondary to the large hemorrhage. Patient was given 2 L of IV fluids initially without much response. Patient was given Methergine and was previously given TXA by EMS. Patient continued her main hypertensive and had further bleeding therefore Dr. Che was paged and he arrived in the emergency department. He found that patient had retained products of conception and remove them and the emergency department. Patient was given 1 unit PRBCs secondary to profound hypotension in the setting of acute hemorrhage. Patient's repeat CBC showed improvement and the patient feels much better. Patient complaining of some slight bleeding but appears well and is not passing clots. Patient's blood pressure was normalized and patient has no other complaints. The patient's blood test did not demonstrate any other acute abnormalities of be concerning for DIC. All questions addressed and answered. Patient given follow-up as an outpatient. 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: Musculoskeletal 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: None Neurological 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: None Psychiatric 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: Anxiety, Depression Endocrine/Metabolic 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: Obesity/BMI 30+ Hematologic 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: None Immunologic 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: None Oncologic (Cancer) 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: None Dermatologic 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: None - Infectious Disease History Infectious Disease 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: Chicken Pox - Past Surgical History Head Surgeries/Procedures: Reports: None HEENT Surgical 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: Adenoidectomy, Tonsillectomy Social & Family History - Family History Family Medical History: Noncontributory Respiratory: Reports: COPD, Other (See Below) Other Respiratory Family Hisory: emphysema : Reports: Other (See Below) Other Family History: kidney disease OBGYN: Reports: Endocrine/Metabolic: Reports: Diabetes, type II Oncologic: Reports: Cervix, Lung - Tobacco Use Smoking Status *Q: Unknown Ever Smoked - Caffeine Use Caffeine Use: Reports: Coffee, Energy Drinks, Soda - Recreational Drug Use Recreational Drug Use: No ED ROS GENERAL - Review of Systems Review Of Systems: See Below ED EXAM - Physical Exam Exam: See Below Course - Vital Signs Last Recorded V/S: Last Vital Signs Temp 36.7 C 09/20/19 09:01 Pulse 85 09/20/19 10:55 Resp 17 09/20/19 10:55 BP 113/61 09/20/19 10:55 Pulse Ox 99 09/20/19 10:55 - Orders/Labs/Meds Orders: Active Orders 24 hr Category Date Time Status RED BLOOD CELLS LP [BBK] Stat Lab 09/20/19 09:34 Results TYPE AND SCREEN [BBK] Stat Lab 09/20/19 09:34 Results Norepinephrine Bit/0.9 % NaCl [Norepinephr-0.9% NaCl 4 Med 09/20/19 11:00 Active mg/250] 4 mg in 250 ml IV TITRATE Transfuse RBC [Transfuse Red Blood Cells] [COMM] Stat Oth 09/20/19 09:56 Ordered Transfuse Red Blood Cells [COMM] Stat Oth 09/20/19 09:50 Ordered Medication Orders Norepinephrine Bitartrate (Norepinephr-0.9% Nacl 4 Mg/250) 4 mg in 250 mls @ 7.5 mls/hr IV TITRATE ELENA; Protocol Labs: Laboratory Tests 09/20/19 09/20/19 09/20/19 Range/Units 09:34 09:34 09:34 WBC 13.66 H (4.0-11.0) K/uL RBC 2.90 L (4.30-5.90) M/uL Hgb 9.4 L (12.0-16.0) g/dL Hct 27.4 L (36.0-46.0) % MCV 94.5 (80.0-98.0) fL MCH 32.4 H (27.0-32.0) pg MCHC 34.3 (31.0-37.0) g/dL RDW Std Deviation 42.1 (28.0-62.0) fl RDW Coeff of Lele 12 (11.0-15.0) % Plt Count 221 (150-400) K/uL MPV 10.00 (7.40-12.00) fL Neut % (Auto) 77.2 (48.0-80.0) % Lymph % (Auto) 16.3 (16.0-40.0) % [place] % (Auto) 5.8 (0.0-15.0) % Eos % (Auto) 0.6 (0.0-7.0) % Baso % (Auto) 0.1 (0.0-1.5) % Neut # (Auto) 10.5 H (1.4-5.7) K/uL Lymph # (Auto) 2.2 (0.6-2.4) K/uL [place] # (Auto) 0.8 (0.0-0.8) K/uL Eos # (Auto) 0.1 (0.0-0.7) K/uL Baso # (Auto) 0.0 (0.0-0.1) K/uL Nucleated RBC % 0.0 /100WBC Nucleated RBCs # 0 K/uL INR 1.01 APTT (18.6-31.3) SEC Fibrinogen 320 (215-411) mg/dL Sodium 141 (136-145) mmol/L Potassium 4.2 (3.5-5.1) mmol/L Chloride 106 (98-107) mmol/L Carbon Dioxide 26.5 (21.0-32.0) mmol/L BUN 8 (7.0-18.0) mg/dL Creatinine 0.8 (0.6-1.0) mg/dL Est Cr Clr Drug Dosing 86.64 mL/min Estimated GFR (MDRD) > 60.0 ml/min Glucose 108 H (74-106) mg/dL Calcium 8.0 L (8.5-10.1) mg/dL Total Bilirubin 0.2 (0.2-1.0) mg/dL AST 14 L (15-37) IU/L ALT 15 (14-63) IU/L Alkaline Phosphatase 46 (46-116) U/L Total Protein 5.3 L (6.4-8.2) g/dL Albumin 2.6 L (3.4-5.0) g/dL Globulin 2.7 (2.6-4.0) g/dL Albumin/Globulin Ratio 1.0 (0.9-1.6) HCG, Quant mIU/mL Blood Type Antibody Screen Crossmatch 09/20/19 09/20/19 09/20/19 Range/Units 09:34 09:34 09:34 WBC (4.0-11.0) K/uL RBC (4.30-5.90) M/uL Hgb (12.0-16.0) g/dL Hct (36.0-46.0) % MCV (80.0-98.0) fL MCH (27.0-32.0) pg MCHC (31.0-37.0) g/dL RDW Std Deviation (28.0-62.0) fl RDW Coeff of Lele (11.0-15.0) % Plt Count (150-400) K/uL MPV (7.40-12.00) fL Neut % (Auto) (48.0-80.0) % Lymph % (Auto) (16.0-40.0) % [place] % (Auto) (0.0-15.0) % Eos % (Auto) (0.0-7.0) % Baso % (Auto) (0.0-1.5) % Neut # (Auto) (1.4-5.7) K/uL Lymph # (Auto) (0.6-2.4) K/uL [place] # (Auto) (0.0-0.8) K/uL Eos # (Auto) (0.0-0.7) K/uL Baso # (Auto) (0.0-0.1) K/uL Nucleated RBC % /100WBC Nucleated RBCs # K/uL INR APTT 19.6 (18.6-31.3) SEC Fibrinogen (215-411) mg/dL Sodium (136-145) mmol/L Potassium (3.5-5.1) mmol/L Chloride (98-107) mmol/L Carbon Dioxide (21.0-32.0) mmol/L BUN (7.0-18.0) mg/dL Creatinine (0.6-1.0) mg/dL Est Cr Clr Drug Dosing mL/min Estimated GFR (MDRD) ml/min Glucose (74-106) mg/dL Calcium (8.5-10.1) mg/dL Total Bilirubin (0.2-1.0) mg/dL AST (15-37) IU/L ALT (14-63) IU/L Alkaline Phosphatase (46-116) U/L Total Protein (6.4-8.2) g/dL Albumin (3.4-5.0) g/dL Globulin (2.6-4.0) g/dL Albumin/Globulin Ratio (0.9-1.6) HCG, Quant 4110.0 mIU/mL Blood Type O POSITIVE Antibody Screen NEGATIVE Crossmatch See Detail 09/20/19 Range/Units 11:45 WBC 13.63 H (4.0-11.0) K/uL RBC 3.35 L (4.30-5.90) M/uL Hgb 10.7 L (12.0-16.0) g/dL Hct 31.7 L (36.0-46.0) % MCV 94.6 (80.0-98.0) fL MCH 31.9 (27.0-32.0) pg MCHC 33.8 (31.0-37.0) g/dL RDW Std Deviation 43.3 (28.0-62.0) fl RDW Coeff of Lele 13 (11.0-15.0) % Plt Count 189 (150-400) K/uL MPV 10.00 (7.40-12.00) fL Neut % (Auto) 82.7 H (48.0-80.0) % Lymph % (Auto) 13.6 L (16.0-40.0) % [place] % (Auto) 3.4 (0.0-15.0) % Eos % (Auto) 0.2 (0.0-7.0) % Baso % (Auto) 0.1 (0.0-1.5) % Neut # (Auto) 11.3 H (1.4-5.7) K/uL Lymph # (Auto) 1.9 (0.6-2.4) K/uL [place] # (Auto) 0.5 (0.0-0.8) K/uL Eos # (Auto) 0.0 (0.0-0.7) K/uL Baso # (Auto) 0.0 (0.0-0.1) K/uL Nucleated RBC % 0.0 /100WBC Nucleated RBCs # 0 K/uL INR APTT (18.6-31.3) SEC Fibrinogen (215-411) mg/dL Sodium (136-145) mmol/L Potassium (3.5-5.1) mmol/L Chloride (98-107) mmol/L Carbon Dioxide (21.0-32.0) mmol/L BUN (7.0-18.0) mg/dL Creatinine (0.6-1.0) mg/dL Est Cr Clr Drug Dosing mL/min Estimated GFR (MDRD) ml/min Glucose (74-106) mg/dL Calcium (8.5-10.1) mg/dL Total Bilirubin (0.2-1.0) mg/dL AST (15-37) IU/L ALT (14-63) IU/L Alkaline Phosphatase (46-116) U/L Total Protein (6.4-8.2) g/dL Albumin (3.4-5.0) g/dL Globulin (2.6-4.0) g/dL Albumin/Globulin Ratio (0.9-1.6) HCG, Quant mIU/mL Blood Type Antibody Screen Crossmatch Meds: Medications Generic Name Dose Route Start Last Admin Trade Name Freq PRN Reason Stop Dose Admin Norepinephrine Bitartrate 4 mg in 250 mls @ 7.5 mls/hr 09/20/19 11:00 Norepinephr-0.9% Nacl 4 Mg/250 IV TITRATE ELENA Protocol 2 MCG/MIN Discontinued Medications Generic Name Dose Route Start Last Admin Trade Name Freq PRN Reason Stop Dose Admin Norepinephrine Bitartrate Confirm 09/20/19 10:55 Norepinephr-0.9% Nacl 4 Mg/250 Administered 09/20/19 10:56 Dose 4 mg in 250 mls @ as directed IV .STK-MED ONE Methylergonovine Maleate 0.2 mg 09/20/19 09:45 09/20/19 09:58 Methergine IM 09/20/19 09:46 0.2 mg Q4H STA Administration Morphine Sulfate 4 mg 09/20/19 09:01 09/20/19 09:33 Morphine IVPUSH 09/20/19 09:02 4 mg ONETIME ONE Administration Ondansetron HCl 4 mg 09/20/19 09:02 09/20/19 09:33 Zofran IVPUSH 09/20/19 09:03 4 mg ONETIME ONE Administration Oxytocin 10 unit 09/20/19 09:34 09/20/19 09:39 Pitocin IM 09/20/19 09:35 10 unit ONETIME ONE Administration Departure - Departure Time of Disposition: 12:20 Disposition: Home, Self-Care 01 Clinical Impression: Retained products of conception with hemorrhage - Discharge Information Instructions: Dilation and Curettage or Vacuum Curettage, Care After, Easy-to- Read, Hemorrhage Referrals: Jatin Warren MD [Primary Care Provider] - Forms: ED Department Discharge Additional Instructions: The following information is given to patients seen in the emergency department who are being discharged to home. This information is to outline your options for follow-up care. We provide all patients seen in our emergency department with a follow-up referral. The need for follow-up, as well as the timing and circumstances, are variable depending upon the specifics of your emergency department visit. If you don't have a primary care physician on staff, we will provide you with a referral. We always advise you to contact your personal physician following an emergency department visit to inform them of the circumstance of the visit and for follow-up with them and/or the need for any referrals to a consulting specialist. The emergency department will also refer you to a specialist when appropriate. This referral assures that you have the opportunity for follow-up care with a specialist. All of these measure are taken in an effort to provide you with optimal care, which includes your follow-up. Under all circumstances we always encourage you to contact your private physician who remains a resource for coordinating your care. When calling for follow-up care, please make the office aware that this follow-up is from your recent emergency room visit. If for any reason you are refused follow-up, please contact the [facility] Emergency Department at and asked to speak to the emergency department charge nurse. Sepsis Event Note - Evaluation Sepsis Screening Result: No Definite Risk - Focused Exam Vital Signs: Vital Signs Temp Pulse Resp BP Pulse Ox 09/20/19 10:55 85 17 113/61 99 09/20/19 10:53 64 17 56/28 L 97 09/20/19 10:51 68 18 59/28 L 99 09/20/19 10:50 68 16 98/54 L 99 09/20/19 10:40 68 16 101/55 L 98 09/20/19 10:20 68 16 104/55 L 98 09/20/19 09:01 36.7 C 92 22 H 108/60 100 Date Exam was Performed: 09/20/19 Time Exam was Performed: 12:17 - My Orders Last 24 Hours: My Active Orders 09/20/19 09:34 RED BLOOD CELLS LP [BBK] Stat TYPE AND SCREEN [BBK] Stat 09/20/19 09:50 Transfuse Red Blood Cells [COMM] Stat 09/20/19 09:56 Transfuse RBC [Transfuse Red Blood Cells] [COMM] Stat 09/20/19 11:00 Norepinephrine Bit/0.9 % NaCl [Norepinephr-0.9% NaCl 4 mg/250] 4 mg in 250 ml IV TITRATE - Assessment/Plan Last 24 Hours: My Active Orders 09/20/19 09:34 RED BLOOD CELLS LP [BBK] Stat TYPE AND SCREEN [BBK] Stat 09/20/19 09:50 Transfuse Red Blood Cells [COMM] Stat 09/20/19 09:56 Transfuse RBC [Transfuse Red Blood Cells] [COMM] Stat 09/20/19 11:00 Norepinephrine Bit/0.9 % NaCl [Norepinephr-0.9% NaCl 4 mg/250] 4 mg in 250 ml IV TITRATE
--- NOTE | 2019-09-20 12:04 | CR ---
Chest: Portable view of the chest was obtained. Comparison: No prior chest imaging. Heart size and mediastinum are normal. Lungs are clear with no acute parenchymal change. Bony structures are unremarkable. Impression: 1. Nothing acute is appreciated on portable chest x-ray. Diagnostic code #1 This report was dictated in MDT
[2019-09-20 12:37] VITALS: BP 98/67; PULSE 99
[2019-09-20] MEDS ORDERED: Misoprostol 200 MCG Tab PO ONE (14:45)
--- NOTE | 2019-09-23 17:38 | CONS ---
DATE OF CONSULTATION: 09/20/2019 DATE OF : 1980 PRIMARY CARE PHYSICIAN: Jatin Warren M.D. This patient is 39. I had seen her in the clinic couple of times. She had declining beta hCG level with ultrasound that shows no pull and her gestational sac was collapsing. The patient is diagnosed with a blighted ovum, and we elected to treat her conservatively, and I gave her Cytotec; however, the patient presented to the emergency room with excessive vaginal bleeding. I was consulted. Upon examination and upon arrival, the patient's vital signs were stable. Speculum examination shows copious amount of blood and blood clot in the vagina and after removing all the blood and blood clot, the cervical os was open and the products of conception was protruding through the cervical os. I used the ring forceps to remove all the products of conception. Once that was done, the bleeding stopped, and the uterus was contract, and the patient stopped bleeding. I instructed the ER personnel to observe her for a while and do appropriate measure if it is needed and to discharge her home when she is stable, and she is to be followed in the office sometime next week. STEPHANIE / DEANN /[id number]
== END 2019-09-20 12:55 | disposition home or self-care (01) ==
LOC: MW.ED 08:54
DX: O03.4 Incomplete spontaneous abortion without complication (principal); Z88.0 Allergy status to penicillin
CPT/HCPCS: 36415; 36430; 71045; 80053; 84702; 85025; 85384; 85610; 85730; 86850; 86900; 86901; 86920; 86921; 86922; 96372; 96374; 96375; 99285; J2210; J2270; J2405; J2590; P9016; 88305

== ENCOUNTER 2020-08-25 04:56 | Inpatient (IN) | payer MEDICAID ==
[2020-08-25] MEDS ORDERED: Butorphanol 1 MG/ML SDV IVPUSH PRN (05:04)
[2020-08-25] MEDS ORDERED: Terbutaline 1 MG/ML SDV SUBCUT PRN (05:04)
[2020-08-25] MEDS ORDERED: Water For Irrigation,Sterile 1,000 ML Container IRR PRN (05:04)
[2020-08-25] MEDS ORDERED: Tranexamic Acid 1,000 MG in Sodium Chloride 0.9% 100 ML IV PRN (05:04)
[2020-08-25] MEDS ORDERED: Carboprost Tromethamine 250 MCG/1 ML Amp IM PRN (05:04)
[2020-08-25] MEDS ORDERED: Lidocaine 1% 50 ML MDV INJECT PRN (05:04)
[2020-08-25] MEDS ORDERED: Methylergonovine 0.2 MG/1 ML Amp IM PRN (05:04)
[2020-08-25] MEDS ORDERED: Misoprostol 200 MCG Tab PO PRN (05:04)
[2020-08-25] MEDS ORDERED: Sodium Chloride 0.9% 10 ML SDV IV PRN (05:04)
[2020-08-25] MEDS ORDERED: Sodium Chloride 0.9% 2.5 ML Syringe FLUSH PRN (05:04)
[2020-08-25] MEDS ORDERED: Sodium Chloride 0.9% 10 ML Syringe FLUSH PRN (05:04)
[2020-08-25] MEDS ORDERED: Misoprostol 25 MCG (1/4 of 100 MCG) Tab VAG PRN ×2 (05:04)
[2020-08-25] MEDS ORDERED: Nalbuphine 10 MG/1 ML Vial IVPUSH PRN (05:04)
[2020-08-25] MEDS ORDERED: Ondansetron 4 MG/2 ML SDV IVPUSH PRN (05:04)
[2020-08-25] MEDS ORDERED: Oxytocin/0.9 % Sodium Chloride 30 UNIT/500 ML BAG IV SCH ×2 (05:15)
[2020-08-25] MEDS ORDERED: Misoprostol 25 MCG (1/4 of 100 MCG) Tab PO ONE (05:23)
[2020-08-25] MEDS: Lactated Ringers 1,000 ML IV SCH ×2 (06:30→11:35)
--- NOTE | 2020-08-25 08:03 | PCM.LDHP ---
L&D History of Present Illness - General Date of Service: 08/25/20 Admit Problem/Dx: Patient Status Order with Admit Dx/Problem 08/25/20 05:04 Patient Status [ADT] Routine Admission Diagnosis/Problem Admission Diagnosis/Problem 08/25/20 07:56 presenting to L&D for IOL at 38 weeks (JESSIE: 09/08/20 by LMP and early ultrasound) due to AMA. O+, Rubella immune, GBS negative. Penicillin allergy. Vertex presentation by Matt'danielle and confirmed by handheld bedside ultrasound. 08/25/20 08:13 Source of Information: Patient History Limitations: Reports: No Limitations - Related Data Allergies/Adverse Reactions: Allergies Allergy/AdvReac Type Severity Reaction Status Date / Time Penicillins Allergy Mild Rash Verified 07/16/20 10:59 Home Medications: Home Meds Pnv No.95/Ferrous Fum/Folic AC [ Caplet] 1 tab PO DAILY 07/16/20 [History] Past Medical History HEENT 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: Other (See Below) Other HEENT History: has upper dental bridge Cardiovascular 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: None Respiratory 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: None Gastrointestinal 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: None Genitourinary 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: None 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 ED ASSISTANT 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: Musculoskeletal 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: None Neurological 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: None Psychiatric 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: Anxiety, Depression Endocrine/Metabolic 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: Obesity/BMI 30+ Hematologic 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: None Immunologic 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: None Oncologic (Cancer) 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: None Dermatologic 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: None - Infectious Disease History Infectious Disease 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: Chicken Pox - Past Surgical History Head Surgeries/Procedures: Reports: None HEENT Surgical 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: Adenoidectomy, Tonsillectomy Cardiovascular Surgical 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: None Respiratory Surgical 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: None GI Surgical 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: None Female Surgical 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: None Endocrine Surgical 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: None Neurological Surgical 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: None Musculoskeletal Surgical 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: None Oncologic Surgical 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: None Social & Family History - Family History Family Medical History: No Pertinent Family History Respiratory: Reports: COPD, Other (See Below) Other Respiratory Family Hisory: emphysema : Reports: Other (See Below) Other Family History: kidney disease OBGYN: Reports: Endocrine/Metabolic: Reports: Diabetes, type II Oncologic: Reports: Cervix, Lung - Tobacco Use Tobacco Use Status *Q: Current Every Day Tobacco User Years of Tobacco use: 20 Packs/Tins Daily: 1 Second Hand Smoke Exposure: Yes - Caffeine Use Caffeine Use: Reports: Soda - Recreational Drug Use Recreational Drug Use: No H&P Review of Systems - Review of Systems: Review Of Systems: See Below General: Reports: No Symptoms HEENT: Reports: No Symptoms Pulmonary: Reports: No Symptoms Cardiovascular: Reports: No Symptoms Gastrointestinal: Reports: No Symptoms Genitourinary: Reports: No Symptoms Musculoskeletal: Reports: No Symptoms Skin: Reports: No Symptoms Psychiatric: Reports: No Symptoms Neurological: Reports: No Symptoms Hematologic/Lymphatic: Reports: No Symptoms Immunologic: Reports: No Symptoms L&D Exam - Exam Exam: See Below - Vital Signs Weight: 196 lb - OB Specific Movement: Active Heart Tones: Present Heart Rate (FHR) Variability: Moderate (6-25 bmp) Presentation: Vertex - Calderon Score Calderon Score Cervix Position: Midposition Calderon Score Consistency: Medium Calderon Score Effacement: 31-50% Calderon Score Dilation: 1-2 cm Calderon Score Infant's Station: -3 Calderon Score Total: 4 - Exam General: Alert, Oriented, Cooperative Lungs: Normal Respiratory Effort Cardiovascular: Regular Rate, Regular Rhythm GI/Abdominal Exam: Soft, Non-Tender Rectal Exam: Deferred Genitourinary: Normal external exam Back Exam: Normal Inspection, Full Range of Motion Extremities: Normal Inspection, Normal Range of Motion, Non-Tender, Normal Capillary Refill Skin: Warm, Dry, Intact Neurological: Normal Speech, Normal Tone, Sensation Intact Psychiatric: Alert, Normal Affect, Normal Mood - Patient Data Lab Results Last 24 hrs: Laboratory Results - last 24 hr 08/25/20 08/25/20 08/25/20 Range/Units 05:30 05:40 06:55 WBC 12.79 H (4.0-11.0) K/uL RBC 3.88 L (4.30-5.90) M/uL Hgb 12.5 (12.0-16.0) g/dL Hct 37.5 (36.0-46.0) % MCV 96.6 (80.0-98.0) fL MCH 32.2 H (27.0-32.0) pg MCHC 33.3 (31.0-37.0) g/dL RDW Std Deviation 44.6 (28.0-62.0) fl RDW Coeff of Lele 13 (11.0-15.0) % Plt Count 248 (150-400) K/uL MPV 10.40 (7.40-12.00) fL Nucleated RBC % 0.0 /100WBC Nucleated RBCs # 0 K/uL SARS-CoV-2 RNA (DANIEL) NEGATIVE (NEGATIVE) Blood Type O POSITIVE Antibody Screen NEGATIVE Result Diagrams: 08/25/20 05:40 - Problem List (1) Supervision of normal IUP (intrauterine ) in multigravida SNOMED Code(s): 599298455, 197205927, 240105604 ICD Code: Z34.80 - ENCOUNTER FOR SUPRVSN OF NORMAL , UNSP TRIMESTER Status: Acute Priority: High Current Visit: Yes Qualifiers: Trimester: third trimester Qualified Code(s): Z34.83 - Encounter for supervision of other normal , third trimester (2) AMA (advanced maternal age) multigravida 35+ SNOMED Code(s): 873795294 ICD Code: O09.529 - SUPERVISION OF ELDERLY MULTIGRAVIDA, UNSPECIFIED TRIMESTER Status: Acute Priority: High Current Visit: Yes Qualifiers: Trimester: third trimester Qualified Code(s): O09.523 - Supervision of elderly multigravida, third trimester Problem List Initiated/Reviewed/Updated: Yes Orders Last 24hrs: Active Orders 24 hr Category Date Time Status Patient Status [ADT] Routine ADT 08/25/20 05:04 Active Bedrest Bathroom Privileges [RC] ASDIRECTED Care 08/25/20 05:04 Active Communication Order [RC] ASDIRECTED Care 08/25/20 05:04 Active Communication Order [RC] ASDIRECTED Care 08/25/20 05:04 Active Communication Order [RC] ASDIRECTED Care 08/25/20 05:04 Active Heart Tones [RC] CONTINUOUS Care 08/25/20 05:04 Active Non Stress Test [RC] PER UNIT ROUTINE Care 08/25/20 05:04 Active May Shower [RC] ASDIRECTED Care 08/25/20 05:04 Active Notify Provider [RC] PRN Care 08/25/20 05:04 Active Notify Provider [RC] PRN Care 08/25/20 05:04 Active Notify Provider [RC] PRN Care 08/25/20 05:04 Active Notify Provider [RC] STAT Care 08/25/20 05:04 Active Oxygen Therapy [RC] ASDIRECTED Care 08/25/20 05:04 Active Up ad Daisy [RC] ASDIRECTED Care 08/25/20 05:04 Active Vaginal Exam [RC] PRN Care 08/25/20 05:04 Active Vaginal Exam [RC] PRN Care 08/25/20 05:04 Active Vital Signs [RC] PER UNIT ROUTINE Care 08/25/20 05:04 Active Vital Signs [RC] PER UNIT ROUTINE Care 08/25/20 05:04 Active RPR (SYPHILIS SERO) W/ RFLX [REF] Routine Lab 08/25/20 05:40 Received Butorphanol [Stadol] Med 08/25/20 05:04 Active 1 mg IVPUSH Q1H PRN Carboprost Tromethamine [Hemabate DS] Med 08/25/20 05:04 Active 250 mcg IM ASDIRECTED PRN Lactated Ringers [Ringers, Lactated] 1,000 ml Med 08/25/20 05:15 Active IV ASDIRECTED Lidocaine 1% [Xylocaine 1%] Med 08/25/20 05:04 Active 50 ml INJECT ONETIME PRN Methylergonovine [Methergine] Med 08/25/20 05:04 Active 0.2 mg IM ASDIRECTED PRN Nalbuphine [Nubain] Med 08/25/20 05:04 Active 10 mg IVPUSH Q1H PRN Ondansetron [Zofran] Med 08/25/20 05:04 Active 4 mg IVPUSH Q6H PRN Oxytocin/0.9 % Sodium Chloride [Oxytocin 30 Unit/500 ML Med 08/25/20 05:15 Active -NS] 30 unit in 500 ml IV TITRATE Oxytocin/0.9 % Sodium Chloride [Oxytocin 30 Unit/500 ML Med 08/25/20 05:15 Active -NS] 30 unit in 500 ml IV TITRATE Sodium Chloride 0.9% [Normal Saline] Med 08/25/20 05:04 Active 10 ml IV ASDIRECTED PRN Sodium Chloride 0.9% [Saline Flush] Med 08/25/20 05:04 Active 10 ml FLUSH ASDIRECTED PRN Sodium Chloride 0.9% [Saline Flush] Med 08/25/20 05:04 Active 2.5 ml FLUSH ASDIRECTED PRN Terbutaline [Brethine] Med 08/25/20 05:04 Active 0.25 mg SUBCUT ASDIRECTED PRN Tranexamic Acid [Cyklokapron] 1,000 mg Med 08/25/20 05:04 Active Sodium Chloride 0.9% [Normal Saline] 100 ml IV ONETIME Water For Irrigation,Sterile [Sterile Water for Med 08/25/20 05:04 Active Irrigation] 1,000 ml IRR ASDIRECTED PRN miSOPROStoL [Cytotec] Med 08/25/20 05:04 Active 200 mcg PO ONETIME PRN miSOPROStoL [Cytotec] Med 08/25/20 05:04 Active 25 mcg VAG ONETIME PRN miSOPROStoL [Cytotec] Med 08/25/20 05:04 Active 25 mcg VAG Q4H PRN Scalp Electrode [WOMSER] Per Unit Routine Oth 08/25/20 05:04 Ordered Medication Administration Instruction [OM.PC] Q3H Oth 08/25/20 05:15 Ordered Peripheral IV Insertion Adult [OM.PC] Routine Oth 08/25/20 05:04 Ordered Resuscitation Status Routine Resus Stat 08/25/20 05:04 Ordered Medication Orders Butorphanol Tartrate (Stadol) 1 mg IVPUSH Q1H PRN PRN Reason: Pain Carboprost Tromethamine (Hemabate Ds) 250 mcg IM ASDIRECTED PRN PRN Reason: Post Hemorrhage Oxytocin/Sodium Chloride (Oxytocin 30 Unit/500 Ml-Ns) 30 unit in 500 mls @ 999 mls/hr IV TITRATE ELENA Tranexamic Acid 1,000 mg/ (Sodium Chloride) 110 mls @ 660 mls/hr IV ONETIME PRN PRN Reason: Bleeding Oxytocin/Sodium Chloride (Oxytocin 30 Unit/500 Ml-Ns) 30 unit in 500 mls @ 2 mls/hr IV TITRATE [facility]; Protocol Lactated Ringer's (Ringers, Lactated) 1,000 mls @ 150 mls/hr IV ASDIRECTED ELENA Last Admin: 08/25/20 06:30 Dose: 150 mls/hr Documented by: JAME Lidocaine HCl (Xylocaine 1%) 50 ml INJECT ONETIME PRN PRN Reason: Laceration repair Methylergonovine Maleate (Methergine) 0.2 mg IM ASDIRECTED PRN PRN Reason: Post Hemorrhage Misoprostol (Cytotec) 200 mcg PO ONETIME PRN PRN Reason: Post Hemorrhage Misoprostol (Cytotec) 25 mcg VAG ONETIME PRN PRN Reason: Cervical Ripening Misoprostol (Cytotec) 25 mcg VAG Q4H PRN PRN Reason: Cervical Ripening Nalbuphine HCl (Nubain) 10 mg IVPUSH Q1H PRN PRN Reason: Pain (severe 7-10) Ondansetron HCl (Zofran) 4 mg IVPUSH Q6H PRN PRN Reason: Nausea/Vomiting Sodium Chloride (Saline Flush) 10 ml FLUSH ASDIRECTED PRN PRN Reason: Keep Vein Open Sodium Chloride (Saline Flush) 2.5 ml FLUSH ASDIRECTED PRN PRN Reason: Keep Vein Open Sodium Chloride (Normal Saline) 10 ml IV ASDIRECTED PRN PRN Reason: IV Use Sterile Water (Sterile Water For Irrigation) 1,000 ml IRR ASDIRECTED PRN PRN Reason: delivery Terbutaline Sulfate (Brethine) 0.25 mg SUBCUT ASDIRECTED PRN PRN Reason: Tacysystole Assessment/Plan Comment:: Admit A: presenting to L&D for IOL at 38 weeks (JESSIE: 09/08/20 by LMP and early ultrasound) due to AMA. O+, Rubella immune, GBS negative. Penicillin allergy. Vertex presentation by Matt's and confirmed by handheld bedside ultrasound. P: Admit for induction of labor; cytotec to pitocin PRN; epidural PRN; anticipate ; Dr. Islas updated.
[2020-08-25] MEDS ORDERED: Misoprostol 25 MCG (1/4 of 100 MCG) Tab PO SCH (12:00)
[2020-08-25] MEDS ORDERED: Bisacodyl 10 MG Supp RECTAL PRN (17:48)
[2020-08-25] MEDS ORDERED: Lanolin 100% Cream 7 GM Tube TOP PRN (17:48)
[2020-08-25] MEDS ORDERED: Ibuprofen 400 MG Tab PO PRN (17:48)
[2020-08-25] MEDS ORDERED: Docusate Sodium 100 MG Cap PO PRN (17:48)
[2020-08-25] MEDS ORDERED: Benzocaine/Menthol 20%-0.5% Spray 78 GM Cannister TOP PRN (17:48)
[2020-08-25] MEDS ORDERED: Witch Hazel Medicated Pads 40/Jar TOP PRN (17:48)
[2020-08-25] MEDS ORDERED: Ibuprofen 800 MG Tab PO PRN (17:48)
[2020-08-25] MEDS ORDERED: oxyCODONE 5 MG Tab PO PRN (17:48)
[2020-08-25] MEDS ORDERED: Acetaminophen 500 MG Tab PO PRN ×2 (17:48)
--- NOTE | 2020-08-25 17:55 | PCM.DEL ---
L & D Note - General Info Date of Service: 08/25/20 Mother's Due Date: 09/08/20 - Delivery Note Labor: Spontaneous Cervical Ripening Method: Misoprostil Delivery Outcome: Livebirth Delivery Method: Spontaneous Vaginal Delivery-Single Presentation: Vertex Nuchal Cord: None Anesthesia Type: None Episiotomy Type: None Laceration: None Placenta: Intact, Spontaneous Cord: 3 Vessels Estimated Blood Loss: 300 Resuscitation Needed: No Score 1 min: 9 Score 5 min: 9 Second Stage Interventions: Reports: Second Nurse Assessed Progress of Descent, Second Nurse Reviewed Contraction Pattern, Second Nurse Reviewed Heart Tones, Encouragement Given, Pushing, Feet in Foot Rests Delivery Comments (Free Text/Narrative):: viable male; head delivered with good pushing, shoulders and body followed easily after; baby to mom's abdomen [id number] for assessment; APGARs 9/9, weight pending; cord doubly clamped, cut by FOB after cessation of pulsing; placenta delivered grossly intact; 3VC; EBL 300 mL; perineum intact; pitocin to IVF; mom and baby left in stable condition with nurse at bedside for assessment - General Info Date of Service: 08/25/20 Admission Dx/Problem (Free Text): Patient Status Order with Admit Dx/Problem 08/25/20 05:04 Patient Status [ADT] Routine Admission Diagnosis/Problem Admission Diagnosis/Problem 08/25/20 07:56 presenting to L&D for IOL at 38 weeks (JESSIE: 09/08/20 by LMP and early ultrasound) due to AMA. O+, Rubella immune, GBS negative. Penicillin allergy. Vertex presentation by Matt's and confirmed by handheld bedside ultrasound. 08/25/20 08:13 Functional Status: Reports: Pain Controlled - Review of Systems General: Reports: No Symptoms HEENT: Reports: No Symptoms Pulmonary: Reports: No Symptoms Cardiovascular: Reports: No Symptoms Gastrointestinal: Reports: No Symptoms Genitourinary: Reports: No Symptoms Musculoskeletal: Reports: No Symptoms Skin: Reports: No Symptoms Neurological: Reports: No Symptoms Psychiatric: Reports: No Symptoms - Patient Data Weight - Most Recent: 196 lb I&O - Last 24 Hours: Intake & Output 08/25/20 08/25/20 08/25/20 06:59 14:59 22:59 Intake Total 1000 950 Balance 1000 950 Lab Results Last 24 Hours: Laboratory Results - last 24 hr 08/25/20 08/25/20 08/25/20 Range/Units 05:30 05:40 06:55 WBC 12.79 H (4.0-11.0) K/uL RBC 3.88 L (4.30-5.90) M/uL Hgb 12.5 (12.0-16.0) g/dL Hct 37.5 (36.0-46.0) % MCV 96.6 (80.0-98.0) fL MCH 32.2 H (27.0-32.0) pg MCHC 33.3 (31.0-37.0) g/dL RDW Std Deviation 44.6 (28.0-62.0) fl RDW Coeff of Lele 13 (11.0-15.0) % Plt Count 248 (150-400) K/uL MPV 10.40 (7.40-12.00) fL Nucleated RBC % 0.0 /100WBC Nucleated RBCs # 0 K/uL SARS-CoV-2 RNA (DANIEL) NEGATIVE (NEGATIVE) Blood Type O POSITIVE Antibody Screen NEGATIVE Med Orders - Current: Current Medications Discontinued Medications Butorphanol Tartrate (Stadol) 1 mg IVPUSH Q1H PRN PRN Reason: Pain Carboprost Tromethamine (Hemabate Ds) 250 mcg IM ASDIRECTED PRN PRN Reason: Post Hemorrhage Oxytocin/Sodium Chloride (Oxytocin 30 Unit/500 Ml-Ns) 30 unit in 500 mls @ 999 mls/hr IV TITRATE ELENA Last Admin: 08/25/20 17:36 Dose: 500 mls/hr Documented by: Tranexamic Acid 1,000 mg/ (Sodium Chloride) 110 mls @ 660 mls/hr IV ONETIME PRN PRN Reason: Bleeding Oxytocin/Sodium Chloride (Oxytocin 30 Unit/500 Ml-Ns) 30 unit in 500 mls @ 2 mls/hr IV TITRATE ELENA; Protocol Lactated Ringer's (Ringers, Lactated) 1,000 mls @ 150 mls/hr IV ASDIRECTED ELENA Last Admin: 08/25/20 11:35 Dose: 150 mls/hr Documented by: Lidocaine HCl (Xylocaine 1%) 50 ml INJECT ONETIME PRN PRN Reason: Laceration repair Methylergonovine Maleate (Methergine) 0.2 mg IM ASDIRECTED PRN PRN Reason: Post Hemorrhage Misoprostol (Cytotec) 200 mcg PO ONETIME PRN PRN Reason: Post Hemorrhage Misoprostol (Cytotec) 25 mcg VAG ONETIME PRN PRN Reason: Cervical Ripening Last Admin: 08/25/20 12:21 Dose: 25 mcg Documented by: Misoprostol (Cytotec) 25 mcg VAG Q4H PRN PRN Reason: Cervical Ripening Last Admin: 08/25/20 08:18 Dose: 25 mcg Documented by: Misoprostol (Cytotec) 25 mcg PO ONETIME ONE Stop: 08/25/20 05:24 Last Admin: 08/25/20 08:11 Dose: 25 mcg Documented by: Misoprostol (Cytotec) 25 mcg PO Q4H ELENA Last Admin: 08/25/20 12:19 Dose: 25 mcg Documented by: Nalbuphine HCl (Nubain) 10 mg IVPUSH Q1H PRN PRN Reason: Pain (severe 7-10) Ondansetron HCl (Zofran) 4 mg IVPUSH Q6H PRN PRN Reason: Nausea/Vomiting Sodium Chloride (Saline Flush) 10 ml FLUSH ASDIRECTED PRN PRN Reason: Keep Vein Open Sodium Chloride (Saline Flush) 2.5 ml FLUSH ASDIRECTED PRN PRN Reason: Keep Vein Open Sodium Chloride (Normal Saline) 10 ml IV ASDIRECTED PRN PRN Reason: IV Use Sterile Water (Sterile Water For Irrigation) 1,000 ml IRR ASDIRECTED PRN PRN Reason: delivery Terbutaline Sulfate (Brethine) 0.25 mg SUBCUT ASDIRECTED PRN PRN Reason: Tacysystole - Exam General: Alert, Oriented, Cooperative, No Acute Distress Lungs: Normal Respiratory Effort Cardiovascular: Regular Rate, Regular Rhythm GI/Abdominal Exam: Soft, Non-Tender (Female) Exam: Normal External Exam Back Exam: Normal Inspection, Full Range of Motion Extremities: Normal Inspection, Normal Range of Motion, Non-Tender, Normal Capillary Refill Skin: Warm, Dry, Intact Neurological: No New Focal Deficit, Normal Speech, Normal Tone, Strength Equal Bilateral, Sensation Intact Psy/Mental Status: Alert, Normal Affect, Normal Mood - Problem List & Annotations (1) Supervision of normal IUP (intrauterine ) in multigravida SNOMED Code(s): 681633783, 504732259, 504061656 Code(s): Z34.80 - ENCOUNTER FOR SUPRVSN OF NORMAL , UNSP TRIMESTER Status: Acute Priority: High Current Visit: Yes Qualifiers: Trimester: third trimester Qualified Code(s): Z34.83 - Encounter for supervision of other normal , third trimester (2) AMA (advanced maternal age) multigravida 35+ SNOMED Code(s): 132445168 Code(s): O09.529 - SUPERVISION OF ELDERLY MULTIGRAVIDA, UNSPECIFIED TRIMESTER Status: Acute Priority: High Current Visit: Yes Qualifiers: Trimester: third trimester Qualified Code(s): O09.523 - Supervision of elderly multigravida, third trimester (3) (spontaneous vaginal delivery) SNOMED Code(s): 521730442 Code(s): O80 - ENCOUNTER FOR FULL-TERM UNCOMPLICATED DELIVERY Status: Acute Priority: High Current Visit: Yes - Problem List Review Problem List Initiated/Reviewed/Updated: Yes - My Orders Last 24 Hours: My Active Orders 08/25/20 Dinner Regular Diet [DIET] 08/25/20 17:48 Patient Status [ADT] Routine May Shower [RC] ASDIRECTED Up ad Daisy [RC] ASDIRECTED Vital Signs [RC] PER UNIT ROUTINE Acetaminophen [Tylenol Extra Strength] 1,000 mg PO Q4H PRN Acetaminophen [Tylenol Extra Strength] 500 mg PO Q4H PRN Benzocaine/Menthol [Dermoplast Pain Relief 20%-0.5% [place]] 78 gm TOP ASDIRECTED PRN Docusate Sodium [Colace] 100 mg PO BID PRN Ibuprofen [Motrin] 400 mg PO Q4H PRN Ibuprofen [Motrin] 800 mg PO Q6H PRN Lanolin [Lansinoh HPA] See Dose Instructions TOP ASDIRECTED PRN bisacodyL [Dulcolax] 10 mg RECTAL ONETIME PRN oxyCODONE 5 mg PO Q2H PRN witch Joel [Tucks] 1 pad TOP ASDIRECTED PRN Assess Lochia [WOMSER] Per Unit Routine Assess Uterine Involution [WOMSER] Per Unit Routine Peripheral IV Discontinue [OM.PC] Routine Resuscitation Status Routine 08/26/20 05:11 HEMOGLOBIN/HEMATOCRIT,HH [HEME] Timed - Plan Plan:: Admit A: presenting to L&D for IOL at 38 weeks (JESSIE: 09/08/20 by LMP and early ultrasound) due to AMA. O+, Rubella immune, GBS negative. Penicillin allergy. Vertex presentation by Matt's and confirmed by handheld bedside ultrasound. P: Admit for induction of labor; cytotec to pitocin PRN; epidural PRN; anticipate ; Dr. Islas updated. Delivery A: viable male; APGARs 9/9, weight pending; cord doubly clamped, cut by FOB after cessation of pulsing; placenta delivered grossly intact; 3VC; EBL 300 mL; perineum intact; pitocin to IVF; mom and baby left in stable condition with nurse at bedside for assessment P: Routine plan of care; Dr. Islas updated.
--- NOTE | 2020-08-26 07:44 | PCM.DCSUM1 ---
Discharge Summary - Hospital Course Free Text/Narrative:: Discharge home with baby. Follow up in the clinic in 6 weeks for routine visit; sooner, if needed. Diagnosis: Stroke: No Modified Ish Scale: No Symptoms at All Modified Ish Scale Score: 0 - Discharge Data Discharge Date: 08/26/20 Discharge Disposition: Home, Self-Care 01 Condition: Good - Referral to Home Health Primary Care Physician: PCP None - Discharge Diagnosis/Problem(s) (1) Supervision of normal IUP (intrauterine ) in multigravida SNOMED Code(s): 397861846, 716614135, 710385514 ICD Code: Z34.80 - ENCOUNTER FOR SUPRVSN OF NORMAL , UNSP TRIMESTER Status: Acute Priority: High Current Visit: Yes Qualifiers: Trimester: third trimester Qualified Code(s): Z34.83 - Encounter for supervision of other normal , third trimester (2) AMA (advanced maternal age) multigravida 35+ SNOMED Code(s): 632984403 ICD Code: O09.529 - SUPERVISION OF ELDERLY MULTIGRAVIDA, UNSPECIFIED TRIMESTER Status: Acute Priority: High Current Visit: Yes Qualifiers: Trimester: third trimester Qualified Code(s): O09.523 - Supervision of elderly multigravida, third trimester (3) (spontaneous vaginal delivery) SNOMED Code(s): 388468386 ICD Code: O80 - ENCOUNTER FOR FULL-TERM UNCOMPLICATED DELIVERY Status: Acute Priority: High Current Visit: Yes - Patient Instructions Diet: Regular Diet as Tolerated, Drink 8-10+ Glasses/Day Activity: As Tolerated, No Strenuous Activities, Rest and Relax Today Driving: May Drive Today Showering/Bathing: May Shower Notify Provider of: Fever, Increased Pain, Swelling and Redness, Drainage, Nausea and/or Vomiting - Discharge Plan *PRESCRIPTION DRUG MONITORING PROGRAM REVIEWED*: Not Applicable *COPY OF PRESCRIPTION DRUG MONITORING REPORT IN PATIENT MAURICIO: Not Applicable Prescriptions/Med Rec: Ibuprofen [Motrin] 800 mg PO Q6H PRN #90 tablet PRN Reason: Pain Home Medications: Home Meds Pnv No.95/Ferrous Fum/Folic AC [ Caplet] 1 tab PO DAILY 07/16/20 [History] Ibuprofen [Motrin] 800 mg PO Q6H PRN #90 tablet 08/26/20 [Rx] Patient Handouts: Baby Blues, Care After Vaginal Delivery - Discharge Summary/Plan Comment DC Time >30 min.: Yes - General Info Date of Service: 08/26/20 Admission Dx/Problem (Free Text: Patient Status Order with Admit Dx/Problem 08/25/20 05:04 Patient Status [ADT] Routine Admission Diagnosis/Problem Admission Diagnosis/Problem 08/25/20 07:56 presenting to L&D for IOL at 38 weeks (JESSIE: 09/08/20 by LMP and early ultrasound) due to AMA. O+, Rubella immune, GBS negative. Penicillin allergy. Vertex presentation by [facility] and confirmed by handheld bedside ultrasound. 08/25/20 08:13 Functional Status: Reports: Pain Controlled, Tolerating Diet, Ambulating, Urinating - Review of Systems General: Reports: No Symptoms HEENT: Reports: No Symptoms Pulmonary: Reports: No Symptoms Cardiovascular: Reports: No Symptoms Gastrointestinal: Reports: No Symptoms Genitourinary: Reports: No Symptoms Musculoskeletal: Reports: No Symptoms Skin: Reports: No Symptoms Neurological: Reports: No Symptoms Psychiatric: Reports: No Symptoms - Patient Data Vitals - Most Recent: Last Vital Signs Temp 97.7 F 08/25/20 19:30 Pulse 78 08/26/20 05:05 Resp 16 08/26/20 05:05 BP 117/70 08/26/20 05:05 Pulse Ox 97 08/26/20 05:05 Weight - Most Recent: 196 lb I&O - Last 24 hours: Intake & Output 08/25/20 08/26/20 08/26/20 22:59 06:59 14:59 Intake Total 950 Balance 950 Lab Results - Last 24 hrs: Laboratory Results - last 24 hr 08/25/20 08/26/20 Range/Units 06:55 05:18 Hgb 11.8 L (12.0-16.0) g/dL Hct 35.7 L (36.0-46.0) % Blood Type O POSITIVE Antibody Screen NEGATIVE Med Orders - Current: Current Medications Acetaminophen (Tylenol Extra Strength) 500 mg PO Q4H PRN PRN Reason: Pain Acetaminophen (Tylenol Extra Strength) 1,000 mg PO Q4H PRN PRN Reason: Pain Benzocaine/Menthol (Dermoplast Pain Relief 20%-0.5% [place]) 78 gm TOP ASDIRECTED PRN PRN Reason: Perineal Comfort Measure Bisacodyl (Dulcolax) 10 mg RECTAL ONETIME PRN PRN Reason: Constipation Docusate Sodium (Colace) 100 mg PO BID PRN PRN Reason: Constipation Emollient Ointment (Lansinoh Hpa) 0 gm TOP ASDIRECTED PRN PRN Reason: Sore Nipples Ibuprofen (Motrin) 400 mg PO Q4H PRN PRN Reason: Pain Ibuprofen (Motrin) 800 mg PO Q6H PRN PRN Reason: Pain Last Admin: 08/26/20 06:02 Dose: 800 mg Documented by: Oxycodone HCl (Oxycodone) 5 mg PO Q2H PRN PRN Reason: Pain Witch [place] (Tucks) 1 pad TOP ASDIRECTED PRN PRN Reason: comfort care Discontinued Medications Butorphanol Tartrate (Stadol) 1 mg IVPUSH Q1H PRN PRN Reason: Pain Carboprost Tromethamine (Hemabate Ds) 250 mcg IM ASDIRECTED PRN PRN Reason: Post Hemorrhage Oxytocin/Sodium Chloride (Oxytocin 30 Unit/500 Ml-Ns) 30 unit in 500 mls @ 999 mls/hr IV TITRATE [facility] [place] Last Admin: 08/25/20 17:36 Dose: 500 mls/hr Documented by: Tranexamic Acid 1,000 mg/ (Sodium Chloride) 110 mls @ 660 mls/hr IV ONETIME PRN PRN Reason: Bleeding Oxytocin/Sodium Chloride (Oxytocin 30 Unit/500 Ml-Ns) 30 unit in 500 mls @ 2 mls/hr IV TITRATE [facility] [place]; Protocol Lactated Ringer's (Ringers, Lactated) 1,000 mls @ 150 mls/hr IV ASDIRECTED ELENA Last Admin: 08/25/20 11:35 Dose: 150 mls/hr Documented by: Lidocaine HCl (Xylocaine 1%) 50 ml INJECT ONETIME PRN PRN Reason: Laceration repair Methylergonovine Maleate (Methergine) 0.2 mg IM ASDIRECTED PRN PRN Reason: Post Hemorrhage Misoprostol (Cytotec) 200 mcg PO ONETIME PRN PRN Reason: Post Hemorrhage Misoprostol (Cytotec) 25 mcg VAG ONETIME PRN PRN Reason: Cervical Ripening Last Admin: 08/25/20 12:21 Dose: 25 mcg Documented by: Misoprostol (Cytotec) 25 mcg VAG Q4H PRN PRN Reason: Cervical Ripening Last Admin: 08/25/20 08:18 Dose: 25 mcg Documented by: Misoprostol (Cytotec) 25 mcg PO ONETIME ONE Stop: 08/25/20 05:24 Last Admin: 08/25/20 08:11 Dose: 25 mcg Documented by: Misoprostol (Cytotec) 25 mcg PO Q4H ELENA Last Admin: 08/25/20 12:19 Dose: 25 mcg Documented by: Nalbuphine HCl (Nubain) 10 mg IVPUSH Q1H PRN PRN Reason: Pain (severe 7-10) Ondansetron HCl (Zofran) 4 mg IVPUSH Q6H PRN PRN Reason: Nausea/Vomiting Sodium Chloride (Saline Flush) 10 ml FLUSH ASDIRECTED PRN PRN Reason: Keep Vein Open Sodium Chloride (Saline Flush) 2.5 ml FLUSH ASDIRECTED PRN PRN Reason: Keep Vein Open Sodium Chloride (Normal Saline) 10 ml IV ASDIRECTED PRN PRN Reason: IV Use Sterile Water (Sterile Water For Irrigation) 1,000 ml IRR ASDIRECTED PRN PRN Reason: delivery Terbutaline Sulfate (Brethine) 0.25 mg SUBCUT ASDIRECTED PRN PRN Reason: Tacysystole - Exam General: Reports: Alert, Oriented, Cooperative, No Acute Distress Lungs: Reports: Normal Respiratory Effort Cardiovascular: Reports: Regular Rate, Regular Rhythm GI/Abdominal Exam: Soft, Non-Tender (Female) Exam: Deferred Rectal (Female) Exam: Deferred Back Exam: Reports: Normal Inspection, Full Range of Motion Extremities: Normal Inspection, Normal Range of Motion, Non-Tender, Normal Capillary Refill Skin: Reports: Warm, Dry, Intact Neurological: Reports: No New Focal Deficit, Normal Gait, Normal Speech, Normal Tone, Sensation Intact Psy/Mental Status: Reports: Alert, Normal Affect, Normal Mood
[2020-08-26 23:18] VITALS: BP 132/72; PULSE 95
== END 2020-08-26 20:15 | disposition home or self-care (01) | DRG 807 ==
LOC: MW.OB 04:56 → OBSVTOIN 17:48 → MW.OB 20:00
PROVIDERS: ADMIT Obstetrics & Gynecology; ATTEND Obstetrics & Gynecology
PROC: 10E0XZZ Delivery of Products of Conception, External Approach (ICD-10-PCS; principal; 2020-08-25)
PROC: 3E0P7VZ Introduction of Hormone into Female Reproductive, Via Natural or Artificial Opening (ICD-10-PCS; 2020-08-25)
PROC: 10907ZC Drainage of Amniotic Fluid, Therapeutic from Products of Conception, Via Natural or Artificial Opening (ICD-10-PCS; 2020-08-25)
DX: O99.214 Obesity complicating childbirth (principal); Z37.0 Single live birth; E66.9 Obesity, unspecified; Z3A.38 38 weeks gestation of pregnancy; O99.334 Smoking (tobacco) complicating childbirth; F17.210 Nicotine dependence, cigarettes, uncomplicated; Z20.822 Contact with and (suspected) exposure to COVID-19
CPT/HCPCS: 36415; 59025; 59409; 85014; 85018; 85027; 86592; 86850; 86900; 86901; A9270-GY; J2590; J7120; U0002